=== PATIENT | female | born 1990 | race African-American/Black ===

== ENCOUNTER 2017-05-29 19:01 | Emergency (ER) | payer MEDICAID ==
[~2017-05-29] VITALS: Ht 162.6 cm; Wt 113.6 kg
[~2017-05-29 19:01] MED LIST: DOXY100T PO
[2017-05-29 19:02] VITALS: BP 182/91; PULSE 125; RESP 16; TEMP 100.9; O2SAT 96
--- NOTE | 2017-05-29 19:40 | PD ---
HPI Chief Complaint: Cold / Flu Symptoms Time Seen by Provider: 19:25 Travel History International Travel<30 days: No Contact w/Intl Traveler<30days: No Traveled to known affect area: No History of Present Illness HPI Patient is 25-year-old female presents to emergency room with complaints of not feeling well for the past week. Patient reports that for the past week, she has had a productive cough with thick white mucous. Reports that she has been having myalgia's as well as sore throat. Reports that she has been having subjective fevers and chills. Reports that her children were sick with similar symptoms prior to onset of her symptoms. Denies chest pain/sob. Patient is a smoker. No recent travels/trips. PFSH Past Medical History Diminished Hearing: No Immunizations Current: Yes Tetanus Vaccination: Unknown ?: Not LMP: 05/15/2017 Menopausal: No : 3 Para: 3 Tubal Ligation: Yes Past Surgical History Section: Yes Gynecologic Surgery: Yes Social History Alcohol Use: No Tobacco Use: Yes (rare) Substance Use: No Allergies-Medications (Allergen,Severity, Reaction): Coded Allergies: No Known Allergies (Verified Adverse Reaction, Unknown, 05/29/17) Reported Meds & Prescriptions Reported Meds & Active Scripts Active No Active Prescriptions or Reported Medications Review of Systems General / Constitutional: Positive: Fever, Chills Eyes: No: Visual changes HENT: Positive: Sore Throat, No: Headaches Cardiovascular: No: Chest Pain or Discomfort Respiratory: Positive: Cough, No: Shortness of Breath Gastrointestinal: No: Abdominal Pain Genitourinary: No: Dysuria Musculoskeletal: No: Pain Skin: No Rash Neurologic: No: Weakness Psychiatric: No: Depression Endocrine: No: Polydipsia Hematologic/Lymphatic: No: Easy Bruising Physical Exam Narrative GENERAL: moderate distress SKIN: Focused skin assessment warm/dry. HEAD: Atraumatic. Normocephalic. EYES: Pupils equal and round. No scleral icterus. No injection or drainage. ENT: No nasal bleeding or discharge. Mucous membranes pink and moist. NECK: Trachea midline. No JVD. CARDIOVASCULAR: Tachycardic. No murmur appreciated. RESPIRATORY: No accessory muscle use. Clear to auscultation. Breath sounds equal bilaterally. GASTROINTESTINAL: Abdomen soft, non-tender, nondistended. Hepatic and splenic margins not palpable. MUSCULOSKELETAL: No obvious deformities. No clubbing. No cyanosis. No edema. NEUROLOGICAL: Awake and alert. No obvious cranial nerve deficits. Motor grossly within normal limits. Normal speech. PSYCHIATRIC: Appropriate mood and affect; insight and judgment normal. Data Data Last Documented VS Vital Signs Date Time Temp Pulse Resp B/P (MAP) Pulse Ox O2 Delivery O2 Flow Rate FiO2 05/29/17 20:47 93 20 167/92 (117) 100 Room Air 05/29/17 19:02 100.9 Orders Orders Complete Blood Count With Diff (05/29/17 19:31) Comprehensive Metabolic Panel (05/29/17 19:31) Urinalysis - C+S If Indicated (05/29/17:31) Influenzae A/B Antigen (05/29/17 19:31) Blood Culture (05/29/17 19:31) Chest, Single Ap (05/29/17 19:31) Ecg Monitoring (05/29/17 19:31) Iv Access Insert/Monitor (05/29/17 19:31) Oximetry (05/29/17 19:31) Group A Rapid Strep Screen (05/29/17 19:31) Ed Urine Pregnancytest Poc (05/29/17 19:31) Sodium Chlor 0.9% 1000 Ml Inj (Ns 1000 M (05/29/17 19:45) Sodium Chlor 0.9% 1000 Ml Inj (Ns 1000 M (05/29/17 19:45) Ketorolac Inj (Toradol Inj) (05/29/17 19:45) Strep Culture (Group A) (05/29/17 19:55) Ceftriaxone Inj (Rocephin Inj) (05/29/17 20:45) Azithromycin Inj (Zithromax Inj) (05/29/17 20:45) Potassium Chloride (Kcl) (05/29/17 21:00) Labs Laboratory Tests Test 05/29/17 19:55 White Blood Count 9.8 TH/MM3 Red Blood Count 3.93 MIL/MM3 Hemoglobin 7.6 GM/DL Hematocrit 25.4 % Mean Corpuscular Volume 64.5 FL Mean Corpuscular Hemoglobin 19.3 PG Mean Corpuscular Hemoglobin Concent 29.9 % Red Cell Distribution Width 18.0 % Platelet Count 485 TH/MM3 Mean Platelet Volume 7.5 FL Neutrophils (%) (Auto) 81.3 % Lymphocytes (%) (Auto) 10.9 % Monocytes (%) (Auto) 7.6 % Eosinophils (%) (Auto) 0.0 % Basophils (%) (Auto) 0.2 % Neutrophils # (Auto) 8.0 TH/MM3 Lymphocytes # (Auto) 1.1 TH/MM3 Monocytes # (Auto) 0.8 TH/MM3 Eosinophils # (Auto) 0.0 TH/MM3 Basophils # (Auto) 0.0 TH/MM3 CBC Comment DIFF FINAL Differential Comment Urine Color YELLOW Urine Turbidity CLEAR Urine pH 6.0 Urine Specific Concrete 1.018 Urine Protein TRACE mg/dL Urine Glucose (UA) NEG mg/dL Urine Ketones NEG mg/dL Urine Occult Blood NEG Urine Nitrite NEG Urine Bilirubin NEG Urine Urobilinogen LESS THAN 2.0 MG/DL Urine Leukocyte Esterase NEG Urine RBC LESS THAN 1 /hpf Urine WBC 2 /hpf Urine Squamous Epithelial Cells 5 /hpf Urine Mucus FEW /lpf Microscopic Urinalysis Comment CATH-CULT NOT IND Blood Urea Nitrogen 6 MG/DL Creatinine 0.86 MG/DL Random Glucose 96 MG/DL Total Protein 8.2 GM/DL Albumin 3.8 GM/DL Calcium Level 8.1 MG/DL Alkaline Phosphatase 57 U/L Aspartate Amino Transf (AST/SGOT) 29 U/L Alanine Aminotransferase (ALT/SGPT) 17 U/L Total Bilirubin 0.3 MG/DL Sodium Level 134 MEQ/L Potassium Level 3.2 MEQ/L Chloride Level 102 MEQ/L Carbon Dioxide Level 23.2 MEQ/L Anion Gap 9 MEQ/L Estimat Glomerular Filtration Rate 97 ML/MIN MDM Medical Decision Making Medical Screen Exam Complete: Yes Emergency Medical Condition: Yes Medical Record Reviewed: Yes Interpretation(s) Vital Signs Date Time Temp Pulse Resp B/P (MAP) Pulse Ox O2 Delivery O2 Flow Rate FiO2 05/29/17 19:02 100.9 125 16 182/91 (121) 96 Room Air Differential Diagnosis Sepsis, strep pharyngitis, pneumonia, viral syndrome, electrolyte abnormality Narrative Course During the course of the patients emergency department visit, the patients history, examination, and differential diagnosis were reviewed with the patient. The patient was placed on a telemetry monitor with oximetry and frequent blood pressure monitoring. The patient had an IV access obtained and blood work sent for analysis. The patient was initially provided IVF, IV Toradol The patients laboratory studies were reviewed and remarkable for: Laboratory Tests Test 05/29/17 19:55 White Blood Count 9.8 TH/MM3 (4.0-11.0) Red Blood Count 3.93 MIL/MM3 (4.00-5.30) Hemoglobin 7.6 GM/DL (11.6-15.3) Hematocrit 25.4 % (35.0-46.0) Mean Corpuscular Volume 64.5 FL (80.0-100.0) Mean Corpuscular Hemoglobin 19.3 PG (27.0-34.0) Mean Corpuscular Hemoglobin Concent 29.9 % (32.0-36.0) Red Cell Distribution Width 18.0 % (11.6-17.2) Platelet Count 485 TH/MM3 (150-450) Mean Platelet Volume 7.5 FL (7.0-11.0) Neutrophils (%) (Auto) 81.3 % (16.0-70.0) Lymphocytes (%) (Auto) 10.9 % (9.0-44.0) Monocytes (%) (Auto) 7.6 % (0.0-8.0) Eosinophils (%) (Auto) 0.0 % (0.0-4.0) Basophils (%) (Auto) 0.2 % (0.0-2.0) Neutrophils # (Auto) 8.0 TH/MM3 (1.8-7.7) Lymphocytes # (Auto) 1.1 TH/MM3 (1.0-4.8) Monocytes # (Auto) 0.8 TH/MM3 (0-0.9) Eosinophils # (Auto) 0.0 TH/MM3 (0-0.4) Basophils # (Auto) 0.0 TH/MM3 (0-0.2) CBC Comment DIFF FINAL Differential Comment Urine Color YELLOW (YELLW/STRAW) Urine Turbidity CLEAR (CLEAR) Urine pH 6.0 (5.0-8.5) Urine Specific Concrete 1.018 (1.002-1.035) Urine Protein TRACE mg/dL (NEG-TRACE) Urine Glucose (UA) NEG mg/dL (NEG) Urine Ketones NEG mg/dL (NEG) Urine Occult Blood NEG (NEG) Urine Nitrite NEG (NEG) Urine Bilirubin NEG (NEG) Urine Urobilinogen LESS THAN 2.0 MG/DL (LESS Urine Leukocyte Esterase NEG (NEG) Urine RBC LESS THAN 1 /hpf (0-3) Urine WBC 2 /hpf (0-5) Urine Squamous Epithelial Cells 5 /hpf (0-5) Urine Mucus FEW /lpf (OCC) Microscopic Urinalysis Comment CATH-CULT NOT IND Blood Urea Nitrogen 6 MG/DL (7-18) Creatinine 0.86 MG/DL (0.50-1.00) Random Glucose 96 MG/DL (74-106) Total Protein 8.2 GM/DL (6.4-8.2) Albumin 3.8 GM/DL (3.4-5.0) Calcium Level 8.1 MG/DL (8.5-10.1) Alkaline Phosphatase 57 U/L (45-117) Aspartate Amino Transf (AST/SGOT) 29 U/L (15-37) Alanine Aminotransferase (ALT/SGPT) 17 U/L (10-53) Total Bilirubin 0.3 MG/DL (0.2-1.0) Sodium Level 134 MEQ/L (136-145) Potassium Level 3.2 MEQ/L (3.5-5.1) Chloride Level 102 MEQ/L (98-107) Carbon Dioxide Level 23.2 MEQ/L (21.0-32.0) Anion Gap 9 MEQ/L (5-15) Estimat Glomerular Filtration Rate 97 ML/MIN (>89) Radiology studies were reviewed and remarkable for Last Impressions Chest X-Ray 05/29/171930 Signed Impressions: Service Date/Time: May 19:38 - CONCLUSION: The lungs are clear. Fito Coronado MD Microbiology Date/Time Source Procedure Growth Status 05/29/17 19:55 Blood Peripheral Aerobic Blood Culture Pending Received 05/29/17 19:55 Blood Peripheral Anaerobic Blood Culture Pending Received 05/29/17 19:55 Blood Peripheral Aerobic Blood Culture Pending Received 05/29/17 19:55 Blood Peripheral Anaerobic Blood Culture Pending Received 05/29/17 19:55 Throat Group A Streptococcus Screen Pending Received 05/29/17 19:55 Nasal Aspirate Influenza Types A,B Antigen (CALLIE) - Final NEGATIVE FOR FLU A AND B ANTIGEN.... Complete 05/29/17 19:55 Throat Group A Streptococcus Screen (CALLIE) - Final Complete Patient with group A strep negative, influenza negative, blood cultures are pending. WBC 9.8, hemoglobin 7.6, hematocrit 25.4, platelets 485 Sodium 134, potassium 3.2, potassium was replenished, BUN 6, creatinine 0.86, AST 29, ALT 17 Patient is not tachycardic after IV fluids. Vital Signs Date Time Temp Pulse Resp B/P (MAP) Pulse Ox O2 Delivery O2 Flow Rate FiO2 05/29/17 20:47 93 20 167/92 (117) 100 Room Air 05/29/17 19:02 100.9 125 16 182/91 (121) 96 Room Air Patient reports that she is feeling much better. I reviewed all labs and all studies as well as all findings with patient in detail. Patient comfortable with being discharged to home. She will follow-up with all cultures from today. Signs and symptoms of when to return to the emergency room was reviewed with patient in detail. In the meantime, patient instructed to drink plenty of fluids, she will follow up with her primary care doctor and will return to emergency room as needed. Diagnosis Primary Impression: Acute bronchitis Qualified Codes: J20.9 - Acute bronchitis, unspecified Additional Impressions: Anemia Smoking addiction Patient Instructions: General Instructions Additional Instructions: Please provide patient with a copy of their lab work and studies at discharge* * Please follow up with your primary care doctor in 1-2 days Return to the ER if symptoms worsen or progress Return to the ER as needed Please take all antibiotics as prescribed Please stop smoking cigarettes Med/Other Pt SpecificInfo: Prescription(s) given Scripts Azithromycin (Azithromycin) 500 Mg Tab 500 MG PO DAILY for Infection, #7 TAB 0 Refills Prov: Brigitte Whitehead DO 05/29/17 Disposition: 01 DISCHARGE HOME Condition: Stable Brigitte Whitehead DO May 29, 2017 19:40
[2017-05-29] MEDS ORDERED: KETOROLAC TROMETHAMINE 30 MG/ML (IVP) VIAL IV PUSH ONE (19:45)
[2017-05-29] MEDS ORDERED: SODIUM CHLOR 0.9% 1000 ML INJ 1,000 ML IV ONE ×2 (19:45)
--- NOTE | 2017-05-29 19:46 | RADRPT ---
EXAM DATE/TIME: 05/29/2017 19:38 [facility] COMPARISON: No previous studies available for comparison. INDICATIONS : Cough MEDICAL HISTORY : Hypertension. SURGICAL HISTORY : None. ENCOUNTER: Initial ACUITY: 2 days PAIN SCORE: 0/10 LOCATION: Bilateral chest FINDINGS: A single view of the chest demonstrates the lungs to be symmetrically aerated without evidence of mas s, infiltrate or effusion. The heart is prominent,, upper limits normal for AP portable technique. The central bronchopulmonary markings are well delineated. Osseous structures are intact. CONCLUSION: The lungs are clear. Fito Coronado MD on May 29, 2017 at 19:43 Board Certified Radiologist. This report was verified electronically.
[2017-05-29 20:19] LABS: BILIRUBIN, URINE NEG (NEG); BLOOD, URINE NEG (NEG); GLUCOSE,URINE NEG (NEG); KETONE, URINE NEG (NEG); MUCUS URINE FEW /lpf (OCC); NITRITE,URINE NEG (NEG); SQUAMOUS EPITHELIAL CELL URINE 5 /hpf (0-5); URINE COLOR YELLOW (YELLW/STRAW); URINE LEUKOCYTE ESTERASE NEG (NEG)
[2017-05-29 20:24] LABS: BASOPHIL % 0.2 % (0.0-2.0); HEMATOCRIT 25.4 % (35.0-46.0); HEMOGLOBIN 7.6 GM/DL (11.6-15.3); LYMPH % 10.9 % (9.0-44.0); LYMPHOCYTE # 1.1 TH/MM3 (1.0-4.8); MEAN CELL VOLUME 64.5 FL (80.0-100.0); MEAN CORPUSCULAR HEMOGLOBIN 19.3 PG (27.0-34.0); MEAN PLATELET VOLUME 7.5 FL (7.0-11.0); MONO % 7.6 % (0.0-8.0); MONOCYTE # 0.8 TH/MM3 (0-0.9); NEUT % 81.3 % (16.0-70.0); PLATELET COUNT 485 TH/MM3 (150-450); RED BLOOD COUNT 3.93 MIL/MM3 (4.00-5.30); WHITE BLOOD COUNT 9.8 TH/MM3 (4.0-11.0)
[2017-05-29 20:28] LABS: MEAN CORPUSCULAR HGB CONC 29.9 % (32.0-36.0)
[2017-05-29 20:42] LABS: ALBUMIN 3.8 GM/DL (3.4-5.0); AST (GOT) 29 U/L (15-37); BICARBONATE 23.2 MEQ/L (21.0-32.0); BLOOD UREA NITROGEN 6 MG/DL (7-18); CALCIUM 8.1 MG/DL (8.5-10.1); CHLORIDE 102 MEQ/L (98-107); CREATININE 0.86 MG/DL (0.50-1.00); GLOMERULAR FILTRATION RATE 97 ML/MIN (>89); GLUCOSE,RANDOM 96 MG/DL (74-106); SODIUM (NA) 134 MEQ/L (136-145)
[2017-05-29] MEDS ORDERED: cefTRIAXone INJ 1,000 MG in SODIUM CHLORIDE 0.9% INJ 100 ML IV ONE (20:45)
[2017-05-29] MEDS ORDERED: AZITHROMYCIN INJ 500 MG in SODIUM CHLOR 0.9% 250 ML INJ 250 ML IV ONE (20:45)
[2017-05-29 20:46] LABS: ALKALINE PHOSPHATASE 57 U/L (45-117); ALT (GPT) 17 U/L (10-53); TOTAL BILIRUBIN ADULT 0.3 MG/DL (0.2-1.0); TOTAL PROTEIN 8.2 GM/DL (6.4-8.2)
[2017-05-29 20:47] VITALS: BP 167/92; PULSE 93; RESP 20; O2SAT 100
[2017-05-29] MEDS ORDERED: POTASSIUM CHLORIDE 10 MEQ CONTROLLED RELEASE TAB PO ONE (21:00)
[2017-05-29] MEDS ORDERED: AZIT500T2 PO (21:49)
[2017-05-30 01:42] VITALS: BP 173/85
== END 2017-05-30 02:42 | disposition home or self-care (01) ==
LOC: NEPD 19:01
DX: J20.9 Acute bronchitis, unspecified (principal); M79.1 Myalgia; D64.9 Anemia, unspecified; Z72.0 Tobacco use
CPT/HCPCS: 71010; 80053; 81001; 84703; 85025; 87040; 87081; 87804; 87880; 96361; 96365; 96375; 99284; J0456; J0696; J1885; J7030; J7050

== ENCOUNTER 2017-06-05 16:48 | Emergency (ER) | payer MEDICAID ==
[~2017-06-05 16:48] MED LIST changes: +AZIT500T2 PO; -DOXY100T PO
[2017-06-05 16:50] VITALS: BP 180/99; PULSE 101; RESP 18; TEMP 99.1; O2SAT 97
--- NOTE | 2017-06-05 20:09 | RADRPT ---
EXAM DATE/TIME: 06/05/2017 20:04 [facility] COMPARISON: CHEST SINGLE AP, May 29, 2017, 19:38. INDICATIONS : Cough. MEDICAL HISTORY : None. SURGICAL HISTORY : None. ENCOUNTER: Initial ACUITY: 2 days PAIN SCORE: 0/10 LOCATION: Bilateral chest FINDINGS: There is infiltrate and effusion in the left lung base. Right lung is grossly clear. Cardiac contours are stable accounting for differences in technique and projection. CONCLUSION: Left base infiltrate and effusion Chevy Schultz MD on June 05, 2017 at 20:06 Board Certified Radiologist. This report was verified electronically.
--- NOTE | 2017-06-05 20:21 | PD ---
HPI Chief Complaint: Cold / Flu Symptoms Time Seen by Provider: 18:58 Travel History International Travel<30 days: No Contact w/Intl Traveler<30days: No Traveled to known affect area: No History of Present Illness HPI 27-year-old female presents emergency department for evaluation of productive cough that started last night. Patient states she is coughing up thick white phlegm. She denies any fevers, chills, malaise. Patient has any abdominal pain , nausea, vomiting, diarrhea. Patient is half packs day smoker. Patient denies any sick contacts. Only major medical history is hypertension. Patient states she does take medication daily for that she can't remember what it is right now. She states she did not take her medication today. PFSH Past Medical History Diminished Hearing: No Hypertension: Yes Immunizations Current: Yes Influenza Vaccination: No ?: Not LMP: 06/05/17 Menopausal: No : 3 Para: 3 Tubal Ligation: Yes Past Surgical History Section: Yes Gynecologic Surgery: Yes Social History Alcohol Use: No Tobacco Use: No Substance Use: No Allergies-Medications (Allergen,Severity, Reaction): Coded Allergies: No Known Allergies (Verified Adverse Reaction, Unknown, 06/05/17) Reported Meds & Prescriptions Reported Meds & Active Scripts Active Review of Systems Except as stated in HPI: all other systems reviewed are Neg Physical Exam Narrative GENERAL: Well-nourished, well-developed 27-year-old female patient in no acute respiratory distress. Nontoxic appearing. SKIN: Focused skin assessment warm/dry. HEAD: Normocephalic. Atraumatic. EYES: No scleral icterus. No injection or drainage. NECK: Supple, trachea midline. No JVD or lymphadenopathy. CARDIOVASCULAR: Regular rate and rhythm without murmurs, gallops, or rubs. RESPIRATORY: Breath sounds course with rhonchi noted in left lower lobe. No accessory muscle use. GASTROINTESTINAL: Abdomen soft, non-tender, nondistended. MUSCULOSKELETAL: No cyanosis, or edema. BACK: Nontender without obvious deformity. No CVA tenderness. Data Data Last Documented VS Vital Signs Date Time Temp Pulse Resp B/P (MAP) Pulse Ox O2 Delivery O2 Flow Rate FiO2 06/05/17 16:50 99.1 101 18 180/99 (126) 97 Orders Orders Chest, Single Ap (06/05/17 19:36) Ceftriaxone Inj (Rocephin Inj) (06/05/17 20:30) Lidocaine 1% Inj (50 Ml) (Xylocaine 1% I (06/05/17 20:30) [facility] Medical Decision Making Medical Screen Exam Complete: Yes Emergency Medical Condition: Yes Differential Diagnosis Differential diagnoses include but not limited to URI, influenza, pneumonia, bronchitis Narrative Course Chest x-ray ordered based on lung sounds upon auscultation. Chest x-ray shows left base infiltrate and effusion. Patient given 1 g IM injection of Rocephin, prescription for 500 mg azithromycin 5 days. Patient given strict instructions to return the emergency Department with any worsening condition. Patient given instructions on smoking cessation and alternating ibuprofen and Tylenol as needed for pain or fevers, supportive care. Patient states she will return to the emergency Department with any worsening condition and take her antibiotics as prescribed. Last Impressions Chest X-Ray 06/05/171935 Signed Impressions: Service Date/Time: , June 05, 2017 20:04 - CONCLUSION: Left base infiltrate and effusion Chevy Schultz MD Diagnosis Primary Impression: Pneumonia Qualified Codes: J18.1 - Lobar pneumonia, unspecified organism Referrals: Primary Care Physician Patient Instructions: General Instructions, How to Stop Smoking (DC), Pneumonia (ED) Additional Instructions: Please return to emergency department if your symptoms return or worsen. Follow up with your primary care provider. Take medications as prescribed. Med/Other Pt SpecificInfo: Prescription(s) given Scripts Azithromycin (Azithromycin) 500 Mg Tab 500 MG PO DAILY for Infection for 5 Days, #5 TAB 0 Refills Prov: Radha Medrano Hannah BLACKWOOD 06/05/17 Disposition: DISCHARGE HOME Condition: Stable Radha Medrano Hannah BLACKWOOD Jun 05, 2017 20:21
[2017-06-05] MEDS ORDERED: AZIT500T2 PO (20:27)
[2017-06-05] MEDS ORDERED: LIDOCAINE HCL 1% 50 ML VIAL INFIL ONE (20:30)
[2017-06-05] MEDS ORDERED: LIDOCAINE HCL 1% PF 30 ML VIAL OTHER ONE (20:45)
== END 2017-06-05 21:03 | disposition home or self-care (01) ==
LOC: NEPK 16:48
DX: J18.1 Lobar pneumonia, unspecified organism (principal)
CPT/HCPCS: 71010; 96372; J0696

== ENCOUNTER 2017-06-07 21:19 | Inpatient (IN) | payer MEDICAID ==
[~2017-06-07] VITALS: Ht 165.1 cm; Wt 108.0 kg
[2017-06-07 21:21] VITALS: BP 241/109; PULSE 120; RESP 18; TEMP 98.8; O2SAT 97
[2017-06-07 21:47] VITALS: BP 176/85; PULSE 115; RESP 18
[2017-06-07] MEDS ORDERED: SODIUM CHLORIDE 0.9% FLUSH 10 ML FLUSH IVF PRN (22:15)
[2017-06-07] MEDS ORDERED: SODIUM CHLOR 0.9% 1000 ML INJ 1,000 ML IV ONE ×2 (22:15→22:30)
--- NOTE | 2017-06-07 22:29 | PD ---
HPI Chief Complaint: Injury Time Seen by Provider: 22:01 Travel History International Travel<30 days: No Contact w/Intl Traveler<30days: No Traveled to known affect area: No History of Present Illness HPI Patient is a 27-year-old female who presents to emergency room with complaints of swelling to her right lower extremity for the past 2 days. Patient denies any history of PE or DVT, denies any recent travels or trips. She reports that she currently is not taking any control pills. Patient reports that she is concerned that she may have a DVT to her right lower extremity. Patient reports that she was recently seen in the hospital and was diagnosed with pneumonia. She has been taking azithromycin since February 27, 2017 as she was treated for acute bronchitis, she then returned to the ER on June 05, 2017 and was diagnosed with LLL infiltrate with effusion. Patient reports that she has since completed her full course of antibiotics. She still has slight cough with shortness of breath on exertion. Denies any chest pain at this time. Patient reports that she is currently not on any medications at this time. PFSH Past Medical History Diminished Hearing: No Hypertension: Yes Immunizations Current: Yes Influenza Vaccination: No ?: Not LMP: 05/29/2017 Menopausal: No : 3 Para: 3 Tubal Ligation: Yes Past Surgical History Section: Yes Gynecologic Surgery: Yes Social History Alcohol Use: Yes (OCC) Tobacco Use: No Substance Use: No Allergies-Medications (Allergen,Severity, Reaction): Coded Allergies: NSAIDS (Non-Steroidal Anti-Inflamma (Unverified Adverse Reaction, Unknown , Rash, 06/07/17) Reported Meds & Prescriptions Reported Meds & Active Scripts Active No Active Prescriptions or Reported Medications Review of Systems General / Constitutional: No: Fever Eyes: No: Visual changes HENT: No: Headaches Cardiovascular: No: Chest Pain or Discomfort Respiratory: Positive: Cough, Shortness of Breath, No: Wheezing Gastrointestinal: No: Abdominal Pain Genitourinary: No: Dysuria Musculoskeletal: Positive: Edema, No: Pain Skin: No Rash Neurologic: No: Weakness Psychiatric: No: Depression Endocrine: No: Polydipsia Hematologic/Lymphatic: No: Easy Bruising Physical Exam Narrative GENERAL: moderate distress SKIN: Focused skin assessment warm/dry. HEAD: Atraumatic. Normocephalic. EYES: Pupils equal and round. No scleral icterus. No injection or drainage. ENT: No nasal bleeding or discharge. Mucous membranes pink and moist. NECK: Trachea midline. No JVD. CARDIOVASCULAR: Tachycardia No murmur appreciated. RESPIRATORY: No accessory muscle use. Clear to auscultation. Breath sounds equal bilaterally. GASTROINTESTINAL: Abdomen soft, non-tender, nondistended. Hepatic and splenic margins not palpable. MUSCULOSKELETAL: No obvious deformities. No clubbing. No cyanosis. +1 edema to right lower extremity - positive Homans sign. NEUROLOGICAL: Awake and alert. No obvious cranial nerve deficits. Motor grossly within normal limits. Normal speech. PSYCHIATRIC: Appropriate mood and affect; insight and judgment normal. Data Data Last Documented VS Vital Signs Date Time Temp Pulse Resp B/P (MAP) Pulse Ox O2 Delivery O2 Flow Rate FiO2 06/07/17 22:36 106 18 97 Nasal Cannula 2.00 06/07/17 21:21 98.8 Orders Orders Electrocardiogram (06/07/17 22:09) Complete Blood Count With Diff (06/07/17 22:09) D-Dimer (06/07/17 22:09) Prothrombin Time / Inr (Pt) (06/07/17 22:09) Act Partial Throm Time (Ptt) (06/07/17 22:09) Chest, Single Ap (06/07/17 22:09) Ecg Monitoring (06/07/17 22:09) Iv Access Insert/Monitor (06/07/17 22:09) Oximetry (06/07/17 22:09) Sodium Chloride 0.9% Flush (Ns Flush) (06/07/17 22:15) Sodium Chlor 0.9% 1000 Ml Inj (Ns 1000 M (06/07/17 22:15) Ed Urine Pregnancytest Poc (06/07/17 22:09) Lactic Acid Sepsis Protocol (06/07/17 22:09) Blood Culture (06/07/17 22:09) Us Leg Venous Doppler (06/07/17 ) Basic Metabolic Panel (Bmp) (06/07/17 22:09) Sodium Chlor 0.9% 1000 Ml Inj (Ns 1000 M (06/07/17 22:30) Type And Screen (06/07/17 23:15) Red Blood Cells (Rbc) (06/07/17 23:15) Blood Product Administration (06/07/17 23:15) Sodium Chlor 0.9% 250 Ml Inj (Ns 250 Ml (06/07/17 23:15) Ct Pulmonary Angiogram (06/07/17 23:24) Vitamin B12 (06/07/17 23:25) Folate, Serum (06/07/17 23:25) Rbc Folate (06/07/17 23:25) Ferritin (06/07/17 23:25) Iron/Tibc Profile (06/07/17 23:25) Retic Count (06/07/17 23:25) Heparin-D5w 25,000 U/250 Ml (Heparin-D5w (06/07/17 23:45) Cbc No Diff, Includes Plts (06/07/17 23:40) Cbc No Diff, Includes Plts (06/10/17 06:00) Act Partial Throm Time (Ptt) (06/08/17 06:40) Occult Blood (Hemoccult) Stool (06/07/17 23:40) Red Blood Cells (Rbc) (06/07/17 23:41) Admit Order (Ed Use Only) (06/07/17 23:42) Labs Laboratory Tests Test 06/07/17 22:30 White Blood Count 14.4 TH/MM3 Red Blood Count 3.26 MIL/MM3 Hemoglobin 6.1 GM/DL Hematocrit 20.6 % Mean Corpuscular Volume 63.3 FL Mean Corpuscular Hemoglobin 18.8 PG Mean Corpuscular Hemoglobin Concent 29.8 % Red Cell Distribution Width 18.8 % Platelet Count 452 TH/MM3 Mean Platelet Volume 8.1 FL Neutrophils (%) (Auto) 76.7 % Lymphocytes (%) (Auto) 12.5 % Monocytes (%) (Auto) 10.0 % Eosinophils (%) (Auto) 0.4 % Basophils (%) (Auto) 0.4 % Neutrophils # (Auto) 11.1 TH/MM3 Lymphocytes # (Auto) 1.8 TH/MM3 Monocytes # (Auto) 1.4 TH/MM3 Eosinophils # (Auto) 0.1 TH/MM3 Basophils # (Auto) 0.1 TH/MM3 CBC Comment DIFF FINAL Differential Comment Prothrombin Time 12.1 SEC Prothromb Time International Ratio 1.2 RATIO Activated Partial Thromboplast Time 28.9 SEC D-Dimer Quantitative (PE/DVT) 7.01 MG/L FEU Blood Urea Nitrogen 8 MG/DL Creatinine 0.65 MG/DL Random Glucose 110 MG/DL Calcium Level 8.5 MG/DL Sodium Level 140 MEQ/L Potassium Level 3.4 MEQ/L Chloride Level 104 MEQ/L Carbon Dioxide Level 27.3 MEQ/L Anion Gap 9 MEQ/L Estimat Glomerular Filtration Rate 134 ML/MIN Lactic Acid Level 1.0 mmol/L MDM Medical Decision Making Medical Screen Exam Complete: Yes Emergency Medical Condition: Yes Medical Record Reviewed: Yes Interpretation(s) EKG at 2228: Sinus tach at 104bpm, qt/qtc: 386/446, nonspecific t wave changes Vital Signs Date Time Temp Pulse Resp B/P (MAP) Pulse Ox O2 Delivery O2 Flow Rate FiO2 06/07/17 21:47 115 18 176/85 (115) Room Air 06/07/17 21:21 98.8 120 18 241/109 (153) 97 Room Air Differential Diagnosis Sepsis, pneumonia, DVT, PE, electrolyte abnormality Narrative Course Patient is a 27-year-old female who presents to emergency room with complaints of right lower extremity swelling and pain for the past 2 days. Patient was recently treated with 2 courses of azithromycin starting on April 29, 2017 for treatment of acute bronchitis as well as pneumonia. She reports that she is still coughing - cough has improved. Reports pains to her RLE and is concerned for DVT. During the course of the patients emergency department visit, the patients history, examination, and differential diagnosis were reviewed with the patient. The patient was placed on a tree trimmer helper with oximetry and frequent blood pressure monitoring. The patient had an IV access obtained and blood work sent for analysis. Sepsis workup initiated as patient is tachycardic with recent treatment with azithromycin for pneumonia. The patient was initially provided IVF. The patients laboratory studies were reviewed and remarkable for CBC & BMP Diagram 06/07/17 22:30 Calcium Level 8.5 Lactic acid 1.0. Radiology studies were reviewed and remarkable for : Last Impressions Chest X-Ray 06/07/179 Signed Impressions: Service Date/Time: Wednesday, June 07, 2017 22:20 - CONCLUSION: No change in slight cardiomegaly. Red Dowling MD Lower Extremity Ultrasound 06/07/17 0000 Signed Impressions: Service Date/Time: Wednesday, June 07, 2017 22:41 - CONCLUSION: Positive study for right lower extremity DVT involving the posterior tibial vein. Chevy Brower MD Patient's hemoglobin is 6.1, patient reports that she just completed her menstrual cycle and did have heavy bleeding for the past week. Plan to type and cross patient and administer one unit of blood. Prior to patient's blood transfusion, anemia labs were ordered including vitamin B12, folate, ferritin, TIBC iron and retic count Patient is tachycardic, she is hypoxic with a pulse ox of 88-92% on room air. PE study ordered. Patient's Doppler ultrasound of lower extremity was positive for DVT to the right posterior tibial vein. Plan to start heparin drip without bolus at this time as patient is anemic most likely from heavy menstrual bleeding. Patient denies blood from rectum or denies dark stools. Case reviewed with Dr. Zavala who accepts pt to service Critical Care Narrative Aggregate critical care time was 30 minutes. Time to perform other separately billable procedures was not included in the critical care time. My time did not include minutes spent treating any other patients simultaneously or on activities that did not directly contribute to the patient's treatment. The services I provided to this patient were to treat and/or prevent clinically significant deterioration that could result in: , decompensation, deterioration I provided critical care services requiring my management, as noted below: Chart data review, documentation time, medication orders and management, vital sign assessments/reviewing monitor data, ordering and reviewing lab tests, ordering and interpreting/reviewing x-rays and diagnostic studies, care of the patient and discussion of the patient with the admitting physicians. Sepsis Criteria SIRS Criteria (2 or more): Heart rate over 90, WBC > 63065, < 4000 or > 10% bands Criteria Outcome: Meets SIRS criteria Diagnosis Primary Impression: Anemia Qualified Codes: D64.9 - Anemia, unspecified Additional Impression: DVT (deep venous thrombosis) Qualified Codes: I82.401 - Acute embolism and thrombosis of unspecified deep veins of right lower extremity Admitting Information Admitting Physician Requests: Admit Scripts No Active Prescriptions or Reported Brigitte Patterson DO Jun 07, 2017 22:29
--- NOTE | 2017-06-07 22:31 | RADRPT ---
EXAM DATE/TIME: 06/07/2017 22:20 [facility] COMPARISON: CHEST SINGLE AP, June 05, 2017, 20:04. INDICATIONS : Short of breath. MEDICAL HISTORY : Hypertension. SURGICAL HISTORY : None. ENCOUNTER: Sequela ACUITY: 3 days PAIN SCORE: 0/10 LOCATION: Bilateral chest FINDINGS: The lungs are clear without infiltrate, nodule, or mass. There is no appreciable pleural effusion fo r technique. Slight cardiomegaly has not changed. CONCLUSION: No change in slight cardiomegaly. Red Dowling MD on June 07, 2017 at 22:28 Board Certified Radiologist. This report was verified electronically.
[2017-06-07 22:36] VITALS: PULSE 106; RESP 18; O2SAT 97
[2017-06-07 23:04] LABS: AUTOMATED NEUTROPHIL # 11.1 TH/MM3 (1.8-7.7); BASOPHIL # 0.1 TH/MM3 (0-0.2); BASOPHIL % 0.4 % (0.0-2.0); EOSINOPHIL # 0.1 TH/MM3 (0-0.4); EOSINOPHIL % 0.4 % (0.0-4.0); LYMPH % 12.5 % (9.0-44.0); LYMPHOCYTE # 1.8 TH/MM3 (1.0-4.8); MEAN CELL VOLUME 63.3 FL (80.0-100.0); MEAN CORPUSCULAR HEMOGLOBIN 18.8 PG (27.0-34.0); MEAN PLATELET VOLUME 8.1 FL (7.0-11.0); MONOCYTE # 1.4 TH/MM3 (0-0.9); NEUT % 76.7 % (16.0-70.0); PLATELET COUNT 452 TH/MM3 (150-450); RED BLOOD COUNT 3.26 MIL/MM3 (4.00-5.30); RED CELL DISTRIBUTION WIDTH 18.8 % (11.6-17.2); WHITE BLOOD COUNT 14.4 TH/MM3 (4.0-11.0)
--- NOTE | 2017-06-07 23:04 | RADRPT ---
EXAM DATE/TIME: 06/07/2017 22:41 [facility] COMPARISON: No previous studies available for comparison. INDICATIONS : Right leg pain/swelling. MEDICAL HISTORY : Hypertension. SURGICAL HISTORY : Tubal ligation. section. ENCOUNTER: Initial ACUITY: 4 - 6 days PAIN SCORE: 4/10 LOCATION: Right leg. TECHNIQUE: Venous ultrasound of the leg was performed from the inguinal ligament to the proximal calf. Real-bhakti e, color Doppler and spectral tracing, compression and augmentation techniques were used. FINDINGS: There is thrombus below the knee involving the right posterior tibial vein. Other venous tributaries of the right lower extremity are patent. CONCLUSION: Positive study for right lower extremity DVT involving the posterior tibial vein. Chevy Brower MD on June 07, 2017 at 23:02 Board Certified Radiologist. This report was verified electronically.
[2017-06-07 23:07] LABS: MEAN CORPUSCULAR HGB CONC 29.8 % (32.0-36.0)
[2017-06-07 23:09] LABS: HEMATOCRIT 20.6 % (35.0-46.0); HEMOGLOBIN 6.1 GM/DL (11.6-15.3)
[2017-06-07] MEDS ORDERED: SODIUM CHLOR 0.9% 250 ML INJ 250 ML IV ONE (23:15)
[2017-06-07 23:19] LABS: BICARBONATE 27.3 MEQ/L (21.0-32.0); CALCIUM 8.5 MG/DL (8.5-10.1); CREATININE 0.65 MG/DL (0.50-1.00)
[2017-06-07 23:30] LABS: INTERNATIONAL NORMALIZED RATIO 1.2 RATIO; PROTHROMBIN TIME - PATIENT 12.1 SEC (9.8-11.6)
[2017-06-07 23:33] LABS: D-DIMER 7.01 MG/L FEU (0.00-0.50)
[2017-06-07] MEDS ORDERED: ACETAMINOPHEN 325 MG TAB PO PRN (23:45)
[2017-06-07] MEDS ORDERED: MAGNESIUM HYDROXIDE SUSP 30 ML CUP PO PRN (23:45)
[2017-06-07] MEDS ORDERED: LACTULOSE SYRUP 20 GM/30 ML CUP PO PRN (23:45)
[2017-06-07] MEDS ORDERED: SENNOSIDES 8.6 MG TAB PO PRN (23:45)
[2017-06-07] MEDS ORDERED: ONDANSETRON HCL 4 MG/2 ML VIAL IVP PRN (23:45)
[2017-06-07] MEDS ORDERED: RESP: ALBUTEROL 2.5 MG/IPRATROPIUM 0.5 MG NEB (PRN) NEB (23:45)
[2017-06-07] MEDS ORDERED: MORPHINE SULFATE 2 MG/ML INJ IV PUSH PRN (23:45)
[2017-06-07] MEDS ORDERED: SODIUM CHLORIDE 0.9% FLUSH 10 ML FLUSH IV FLUSH PRN (23:45)
[2017-06-07] MEDS ORDERED: BISACODYL 10 MG SUPP RECTAL PRN (23:45)
--- NOTE | 2017-06-07 23:45 | HHI.HP ---
[facility] Adama Hall DO Admission Diagnosis DVT, Symptomatic anemia Diagnoses: (1) DVT (deep venous thrombosis) Diagnosis: Principal (2) PE (pulmonary thromboembolism) Diagnosis: Principal (3) HTN (hypertension) Diagnosis: Principal (4) Anemia Diagnosis: Principal (5) Tobacco abuse Diagnosis: Principal Travel History International Travel<30 Days: No Contact w/Intl Traveler <30 Da: No Traveled to Known Affected Are: No History of Present Illness This is a 27-year-old female w/ a PMH of HTN and Non-Compliance who presented to the ER with complaints of right leg pain and swelling starting this morning. States she thought she may have hit her leg on something at the house, but is unsure. No discrete trauma. Reports worsening swelling and pain throughout the day. Pain is constant, sharp, 8/10. Non-radiating. Worse w/ movement/ palpation. Also reports ongoing SOB. Previously seen in ER on 05/29/17 for c/ o cough/SOB, diagnosed w/ Bronchitis and d/c'd w/ Zithro 500mg PO. Returned to ER on 06/05/17 w/ ongoing complaints, reports compliance w/ antibiotics, d/c'd w / 2nd course of Zithro 500mg PO x5 days. Reports persistent cough w/ white/ yellow colored sputum and SOB, worse w/ exertion. Admits to Tobacco Abuse, however hasn't smoked in the past 2wks due to symptoms. On arrival, BP 241/109 , HR 120, O2 sat 97% on RA, Temp 99.1. O2 sat 88% with ambulation while in ER. WBC 14.4. Hemoglobin 6.1, repeat 5.8. Chemistry essentially unremarkable. INR 1.2. D-dimer elevated at 7. RLE Doppler positive for DVT. CXR w/ cardiomegaly. CTA Pulm w/ widespread small bilateral pulmonary emboli, left greater than right pulmonary consolidations. pRBC transfusion pending, started on Heparin gtt. Pt and Sister report no family h/o DVT/PE. Pt not on control-off "for years". No recent surgery, injury, immobility. Review of Systems Except as stated in HPI: all other systems reviewed are Neg ROS: 14 point review of systems otherwise negative. Past Family Social History Past Medical History PMH: HTN and Non-Compliance Past Surgical History PAST SURGICAL HISTORY: Allergies: Coded Allergies: NSAIDS (Non-Steroidal Anti-Inflamma (Unverified Adverse Reaction, Unknown , Rash, 06/07/17) Family History PAST FAMILY HISTORY: Reviewed. No h/o DM or CAD Social History PAST SOCIAL HISTORY: Occasional alcohol. Positive for tobacco abuse. Negative for drugs. Physical Exam Vital Signs Vital Signs Date Time Temp Pulse Resp B/P (MAP) Pulse Ox O2 Delivery O2 Flow Rate FiO2 06/07/17 22:36 106 18 97 Nasal Cannula 2.00 06/07/17 21:47 115 18 176/85 (115) Room Air 06/07/17 21:21 98.8 120 18 241/109 (153) 97 Room Air Physical Exam PE: GENERAL: Young black female in no acute distress. Sister at bedside. HEENT: PERRLA, EOMI. No scleral icterus or conjunctival pallor. No lid lag or facial droop. CARDIOVASCULAR: Regular rate and rhythm. No obvious murmurs to auscultation. No chest tenderness to palpation. RESPIRATORY: No obvious rhonchi or wheezing. Clear to auscultation. Breath sounds equal bilaterally. GASTROINTESTINAL: Abdomen soft, non-tender, nondistended. BS normal. MUSCULOSKELETAL: LLE without clubbing, cyanosis, or edema. No obvious deformities. RLE w/ +1 edema, tenderness to palpation. NEUROLOGICAL: Awake, alert and oriented x4. No focal neurologic deficits. Moving both upper and lower extremities spontaneously. Laboratory Laboratory Tests Test 06/07/17 22:30 White Blood Count 14.4 Red Blood Count 3.26 Hemoglobin 6.1 Hematocrit 20.6 Mean Corpuscular Volume 63.3 Mean Corpuscular Hemoglobin 18.8 Mean Corpuscular Hemoglobin Concent 29.8 Red Cell Distribution Width 18.8 Platelet Count 452 Mean Platelet Volume 8.1 Neutrophils (%) (Auto) 76.7 Lymphocytes (%) (Auto) 12.5 Monocytes (%) (Auto) 10.0 Eosinophils (%) (Auto) 0.4 Basophils (%) (Auto) 0.4 Neutrophils # (Auto) 11.1 Lymphocytes # (Auto) 1.8 Monocytes # (Auto) 1.4 Eosinophils # (Auto) 0.1 Basophils # (Auto) 0.1 CBC Comment DIFF FINAL Differential Comment Prothrombin Time 12.1 Prothromb Time International Ratio 1.2 Activated Partial Thromboplast Time 28.9 D-Dimer Quantitative (PE/DVT) 7.01 Blood Urea Nitrogen 8 Creatinine 0.65 Random Glucose 110 Calcium Level 8.5 Sodium Level 140 Potassium Level 3.4 Chloride Level 104 Carbon Dioxide Level 27.3 Anion Gap 9 Estimat Glomerular Filtration Rate 134 Lactic Acid Level 1.0 Date/Time Source Procedure Growth Status 06/07/17 22:30 Blood Peripheral Aerobic Blood Culture Pending Received 06/07/17 22:30 Blood Peripheral Anaerobic Blood Culture Pending Received Result Diagram: 06/07/17222906/07/172229 Capchristen VTE Risk Assessment Capchristen VTE Risk Assessment: Mod/High Risk (score >= 2) Caprini Risk Assessment Model Point Value = 1 Point Value = 2 Point Value = 3 Point Value = 5 Age 41-60 Minor surgery BMI > 25 kg/m2 Swollen legs Varicose veins or History of unexplained or recurrent spontaneous Oral contraceptives or hormone replacement Sepsis (< 1 month) Serious lung disease, including pneumonia (< 1 month) Abnormal pulmonary function Acute myocardial infarction Congestive heart failure (< 1 month) History of inflammatory bowel disease Medical patient at bed rest Age 61-74 Arthroscopic surgery Major open surgery (> 45 min) Laparoscopic surgery (> 45 min) Malignancy Confined to bed (> 72 hours) Immobilizing plaster cast Central venous access Age >= 75 History of VTE Family history of VTE Factor V Leiden Prothrombin [id number] Lupus anticoagulant Anticardiolipin antibodies Elevated serum homocysteine Heparin-induced thrombocytopenia Other congenital or acquired thrombophilia Stroke (< 1 month) Elective arthroplasty Hip, pelvis, or leg fracture Acute spinal cord injury (< 1 month) Prophylaxis Regimen Total Risk Factor Score Risk Level Prophylaxis Regimen 0-1 Low Early ambulation 2 Moderate Order ONE of the following: *Sequential Compression Device (SCD) *Heparin 5000 units SQ BID 3-4 Higher Order ONE of the following medications: *Heparin 5000 units SQ TID *Enoxaparin/Lovenox 40 mg SQ daily (WT < 150 kg, CrCl > 30 mL/min) *Enoxaparin/Lovenox 30 mg SQ daily (WT < 150 kg, CrCl > 10-29 mL/min) *Enoxaparin/Lovenox 30 mg SQ BID (WT < 150 kg, CrCl > 30 mL/min) AND/OR *Sequential Compression Device (SCD) 5 or more Highest Order ONE of the following medications: *Heparin 5000 units SQ TID (Preferred with Epidurals) *Enoxaparin/Lovenox 40 mg SQ daily (WT < 150 kg, CrCl > 30 mL/min) *Enoxaparin/Lovenox 30 mg SQ daily (WT < 150 kg, CrCl > 10-29 mL/min) *Enoxaparin/Lovenox 30 mg SQ BID (WT < 150 kg, CrCl > 30 mL/min) AND *Sequential Compression Device (SCD) Assessment and Plan Problem List: (1) DVT (deep venous thrombosis) ICD Code: I82.409 - Acute embolism and thrombosis of unspecified deep veins of unspecified lower extremity Status: Acute (2) PE (pulmonary thromboembolism) ICD Code: I26.99 - Other pulmonary embolism without acute cor pulmonale (3) HTN (hypertension) ICD Code: I10 - Essential (primary) hypertension (4) Anemia ICD Code: D64.9 - Anemia, unspecified Status: Acute (5) Tobacco abuse ICD Code: Z72.0 - Tobacco use Assessment and Plan A/P: 1. DVT: acute onset of RLE pain/swelling, no trauma/injury. Doppler RLE + DVT. No previous h/o DVT, no recent travel/injury/surgery/immobility, no family h/o DVT. Analgesics/antiemetics as needed. 2. PE: CTA Pulm w/ widespread small bilateral PE, images reviewed by me, unclear etiology, no risk factors as above. Started on Heparin gtt, caution w/ anemia, however will proceed w/ anticoagulation as pt hemodynamically stable and high risk of further PE. Consult Hematology for recommendations regarding anticoagulation in light of profound anemia requiring transfusion. Check trop and Check Echo to eval for cardiac strain. DuoNeb/Symbicort prn for bronchospasm from widespread PE. 3. Anemia: Likely Iron Deficiency Anemia, reports chronic, heavy menstrual bleeding. Previous h/o Iron infusions in the past, however pt non-compliant w/ follow-up. Hgb 6.1, repeat confirmed at 5.8. Check Ferritin/Iron/TIBC. Transfuse 2u pRBC, repeat Hgb. Consult Hematology as above for further eval of anemia. 4. PNA: w/ failed outpatient therapy. S/p Zithro 500mg po x2 courses of treatment, CTA Pulm w/ left greater than right consolidation, images reviewed by me. Start Rocephin/Zithro IV, DuoNeb prn. 5. HTN: Uncontrolled secondary to non-compliance. BP 241/109, HR 120 on arrival, currently 179/90, HR 107. Start Nifedipine. Hold B-casie in light of widespread PE and SOB. 6. Tobacco Abuse: Heparin gtt for acute DVT/PE 7. Social work for d/c planning as needed. 8. Previous records, imaging, labs extensively reviewed by me, case discussed at length w/ ER physician, PRECISE WINDER, pt and sister. Physician Certification 2 Midnight Certification Type: Admission for Inpatient Services Order for Inpatient Services The services are ordered in accordance with Medicare regulations or non- Medicare payer requirements, as applicable. In the case of services not specified as inpatient-only, they are appropriately provided as inpatient services in accordance with the 2-midnight benchmark. Estimated LOS (days): 2 days is the estimated time the patient will need to remain in the hospital, assuming treatment plan goals are met and no additional complications. Post-Hospital Plan: Not yet determined Problem Qualifiers (1) DVT (deep venous thrombosis): Qualified Codes: I82.401 - Acute embolism and thrombosis of unspecified deep veins of right lower extremity (2) Anemia: Qualified Codes: D64.9 - Anemia, unspecified Lucita Zavala MD Jun 07, 2017 23:45
[2017-06-07 23:57] LABS: RETIC # 104.7 MIL/L (20.0-150.0); RETIC % 3.2 % (0.4-3.0)
[2017-06-07] MEDS ORDERED: IOHEXOL 350 MG/ML 10 ML VIAL (for RAD DIAG) IVCONTRAST ONE (23:58)
[2017-06-08] VITALS (21 sets, daily range): BP systolic 149–189; BP diastolic 79–105; PULSE 69–114; RESP 18–21; TEMP 98.2–99.5; O2SAT 87–100
--- NOTE | 2017-06-08 00:26 | RADRPT ---
EXAM DATE/TIME: 06/08/2017 00:04 [facility] COMPARISON: No previous studies available for comparison. INDICATIONS : Swollen right leg. Elevated D-Dimer. IV CONTRAST: 80 cc Omnipaque 350 (iohexol) IV RADIATION DOSE: 23.47 CTDIvol (mGy) MEDICAL HISTORY : Hypertension. SURGICAL HISTORY : Tubal ligation. ENCOUNTER: Initial ACUITY: 1 day PAIN SCALE: 0/10 LOCATION: chest TECHNIQUE: Volumetric scanning of the chest was performed using a pulmonary embolism protocol MIP images were re constructed. Using automated exposure control and adjustment of the mA and/or kV according to patien t size, radiation dose was kept as low as reasonably achievable to obtain optimal diagnostic quality images. DICOM format image data is available electronically for review and comparison. Follow-up recommendations for detected pulmonary nodules are based at a minimum on nodule size and pa tient risk factors according to Fleischner Society Guidelines. FINDINGS: Scattered segmental emboli involve all lobes of both lungs. No large/central pulmonary embolus. Heart size normal. No evidence of right ventricular strain. There is pulmonary consolidation of both lung bases, left worse than right. This is most likely infec tious or inflammatory but conceivably some of the areas may represent pulmonary infarcts. No pleu ral effusion or pneumothorax. There are scattered mediastinal lymph nodes including a subcarinal lymph node measuring up to 23 mm i n greatest short axis dimension. CONCLUSION: 1. Widespread small bilateral pulmonary emboli. 2. Left greater than right pulmonary consolidation. Please see above. 3. Nonspecific mediastinal lymphadenopathy, mostly subcarinal. Chevy Brower MD on June 08, 2017 at 0:18 Board Certified Radiologist. This report was verified electronically.
[2017-06-08 00:33] LABS: MEAN CELL VOLUME 63.5 FL (80.0-100.0); MEAN PLATELET VOLUME 8.2 FL (7.0-11.0); PLATELET COUNT 412 TH/MM3 (150-450); RED BLOOD COUNT 3.08 MIL/MM3 (4.00-5.30); RED CELL DISTRIBUTION WIDTH 18.9 % (11.6-17.2)
[2017-06-08 00:38] LABS: MEAN CORPUSCULAR HGB CONC 29.8 % (32.0-36.0)
[2017-06-08 00:52] LABS: HEMATOCRIT 19.5 % (35.0-46.0); HEMOGLOBIN 5.8 GM/DL (11.6-15.3)
[2017-06-08] MEDS: cefTRIAXone INJ 1,000 MG in SODIUM CHLORIDE 0.9% INJ 100 ML IV SCH (01:18)
[2017-06-08] MEDS: AZITHROMYCIN INJ 500 MG in SODIUM CHLOR 0.9% 250 ML INJ 250 ML IV SCH (01:22)
[2017-06-08] MEDS ORDERED: NIFEdipine 30 MG SUSTAINED RELEASE TAB PO ONE (02:00)
[2017-06-08] MEDS: HEPARIN-D5W 25,000 U/250 ML 250 ML IV PRN (03:02)
[2017-06-08] MEDS: ACETAMINOPHEN/HYDROcodone 325 MG/5 MG TAB PO PRN ×3 (05:16→21:26)
[2017-06-08] MEDS: SODIUM CHLORIDE 0.9% FLUSH 10 ML FLUSH IV FLUSH SCH ×2 (09:00→21:26)
[2017-06-08] MEDS: NIFEdipine 30 MG SUSTAINED RELEASE TAB PO SCH (09:10)
[2017-06-08] MEDS: DOCUSATE SODIUM 50 MG/SENNA 8.6 MG TAB PO SCH ×2 (09:10→21:25)
[2017-06-08] MEDS ORDERED: cloNIDine HCL 0.1 MG TAB PO PRN (13:15)
--- NOTE | 2017-06-08 13:20 | EKG ---
Date Performed: 06/07/2017 Time Performed: 22:28:23 PTAGE: 27 years EKG: SINUS TACHYCARDIA NONSPECIFIC T-WAVE ABNORMALITY ABNORMAL RHYTHM ECG NO PREVIOUS TRACING DOCTOR: Domo Olivo Interpretating Date/Time 06/08/2017 13:18:06
--- NOTE | 2017-06-08 14:44 | MB ---
cc: BASIL LARSON MD DATE OF CONSULTATION: 06/08/2017. HISTORY OF PRESENT ILLNESS: Ms. Alcantar is a 27-year-old lady with a history of hypertension and noncompliance who was admitted to the hospital on June 07, 2017 after she presented to the emergency room with right-sided leg pain of one days duration. She also reports that she had been having shortness of breath for approximately three days leading up to her presentation. She has three children, and all three of them are ill with a bronchitis which she had caught. She has had multiple emergency room visits for bronchitis and she had been on antibiotic therapy. She was discharged recently. She had been on two courses of azithromycin. IMAGING STUDIES: Imaging studies include an ultrasound of the lower extremities, which showed a thrombus below the knee involving the right posterior tibial vein. CTA showed widespread small bilateral pulmonary emboli and pulmonary consolidation of both lung bases, left worse than right. The radiologist notes that this is most likely infectious or inflammatory but conceivably some of the areas may represent pulmonary infarcts. No pleural effusion or pneumothorax. Also noted are scattered mediastinal lymph nodes including a subcarinal lymph node measuring up to 2.3 mm. Blood cultures from the with no growth in one day. Laboratory studies show a hemoglobin of 5.8 and MCV of 63.5. White blood cell count 14.0, platelet count of 412,000. Chemistry studies with a creatinine of 0.65. Liver function tests with a total bilirubin of 0.3, AST 29, ALT 17, alkaline phosphatase of 57. Liver function tests are from the . Renal function is within normal limits at 0.65. REVIEW OF SYSTEMS: GENERAL: Fatigue and weakness. RESPIRATORY: Productive cough, shortness of breath. MUSCULOSKELETAL: Pain in right lower extremity. PAST SURGICAL HISTORY: section. PAST MEDICAL HISTORY: Hypertension. ALLERGIES: NSAIDS. FAMILY HISTORY: maternal grandmother with a history of blood clots SOCIAL HISTORY: Occasional alcohol. Positive for tobacco, negative for drugs. She does not work at this time, She takes care of her children. She denies any illegal drug use. PHYSICAL EXAMINATION: VITAL SIGNS: Temperature 99.1 pulse is 69, respiratory rate 28, blood pressure 158/79, pulse ox is 98 on 2 liters of oxygen via nasal cannula. GENERAL: Overweight lady in no distress, resting comfortably in bed. ENT: Nasal cannula in place OP clear. NECK: Neck is supple with no palpable lymphadenopathy. CARDIOVASCULAR: Regular rate and rhythm with no murmurs. RESPIRATORY: Clear to auscultation bilaterally. ABDOMEN: The abdomen is soft, nontender and nondistended. Bowel sounds present. EXTREMITIES: Swelling, erythema and tenderness of the right lower extremity. NEUROLOGIC: Grossly nonfocal. MUSCULOSKELETAL: Full range of motion. PSYCHIATRIC: appropriate mood and affect. ASSESSMENT AND PLAN: 1. Anemia. We will check iron profile, ferritin, vitamin B12 and folate. Will add these labs onto a CBC that was taken prior to blood transfusion. She denies blood in stool or blood in urine, but she does report heavy menstrual blood loss. Will consult gynecology team for recommendations on control of this as she will be discharged with a blood thinner and this will be worsened and exacerbated by the blood thinner. Will check stool for occult blood. 2. Venous thromboembolism with widespread PE and right lower extremity DVT: The patient reports that she leads a sedentary lifestyle and this has been worsened recently as she has been sick and been in and out of the emergency room. Denies any family history of blood clot or any personal history of blood clot. Denies any family history of miscarriage. This is likely provoked. She will need at minimum three months of anticoagulation. At that time, she will need to follow in clinic and discuss continuing anticoagulation versus cessation of anticoagulation. Will consider hypercoagulable workup in the outpatient setting. 2. Heavy menstrual blood loss. Will consult gynecology for further evaluation. MD ANI Kidd/ANGELIQUE /1:41 PM /2:17 PM
[2017-06-08] MEDS ORDERED: FUROSEMIDE 40 MG/4 ML VIAL IV PUSH ONE (14:45)
--- NOTE | 2017-06-08 14:52 | HHI.PR ---
Subjective Remarks Patient c/o pain in right calf as well as some chest pain. Denies fevers or chills. As per RN o2 sats dropping in the thigh 80's. Patient is afebrile and tachycardic Getting blood transfusions On IV heparin drip Objective Vitals Vital Signs Date Time Temp Pulse Resp B/P (MAP) Pulse Ox O2 Delivery O2 Flow Rate FiO2 06/08/17 14:01 99.4 107 20 149/90 (109) 92 06/08/17 13:55 99.4 114 20 164/86 (112) 87 06/08/17 13:50 Nasal Cannula 2.00 06/08/17 13:30 99.0 105 20 166/94 90 06/08/17 12:01 99.1 69 20 158/79 (105) 98 06/08/17 10:05 98.6 105 20 179/82 90 06/08/17 09:47 98.6 106 20 177/80 90 06/08/17 09:23 98.2 106 20 160/93 92 06/08/17 09:00 Nasal Cannula 2.00 06/08/17 08:01 98.3 91 21 189/105 (133) 93 06/08/17 08:00 88 06/08/17 07:50 Nasal Cannula 2.00 06/08/17 05:37 98.7 96 18 187/94 95 06/08/17 05:22 98.7 103 18 185/101 100 06/08/17 04:00 99.2 102 18 187/94 (125) 99 06/08/17 04:00 101 06/08/17 02:25 98.9 106 18 182/95 98 06/08/17 02:06 105 06/08/17 01:13 06/08/17 01:10 98.3 111 19 178/92 (120) 97 06/08/17 00:51 98 Nasal Cannula 2.00 06/08/17 00:31 107 20 179/90 (119) 98 Nasal Cannula 2.00 06/07/17 22:36 106 18 97 Nasal Cannula 2.00 06/07/17 21:47 115 18 176/85 (115) Room Air 06/07/17 21:21 98.8 120 18 241/109 (153) 97 Room Air I/O 12/30/17 1206/07/17 06/08/17 06/08/17 06/08/17 07:00 15:00 23:00 07:00 15:00 23:00 Intake Total 2009 ml 825 ml Balance 2010 ml 825 ml Intake Oral 240 ml IV Total 1350 ml Packed Cells 400 ml 800 ml Blood Product IV Normal Saline Flush 20 ml 25 ml # Voids 1 # Bowel Movements 0 Result Diagram: 06/07/17 2359 06/07/[address] Angiography 06/07/174 Signed Impressions: Service Date/Time: Thursday, June 08, 2017 00:04 - CONCLUSION: 1. Widespread small bilateral pulmonary emboli. 2. Left greater than right pulmonary consolidation. Please see above. 3. Nonspecific mediastinal lymphadenopathy, mostly subcarinal. Chevy Brower MD Chest X-Ray 06/07/172208 Signed Impressions: Service Date/Time: Wednesday, June 07, 2017 22:20 - CONCLUSION: No change in slight cardiomegaly. Red Dowling MD Lower Extremity Ultrasound 06/07/17 0000 Signed Impressions: Service Date/Time: Wednesday, June 07, 2017 22:41 - CONCLUSION: Positive study for right lower extremity DVT involving the posterior tibial vein. Chevy Brower MD Objective Remarks GENERAL: Young black female in no acute distress. HEENT: PERRLA, EOMI. No scleral icterus or conjunctival pallor. No lid lag or facial droop. CARDIOVASCULAR: Regular rate and rhythm. No obvious murmurs to auscultation. No chest tenderness to palpation. RESPIRATORY: No obvious rhonchi or wheezing. Clear to auscultation. Breath sounds equal bilaterally. GASTROINTESTINAL: Abdomen soft, non-tender, nondistended. BS normal. MUSCULOSKELETAL: LLE without clubbing, cyanosis, or edema. No obvious deformities. RLE w/ +1 edema, tenderness to palpation over calf. NEUROLOGICAL: Awake, alert and oriented x4. No focal neurologic deficits. Moving both upper and lower extremities spontaneously. Medications and IVs Current Medications Medications (Trade) Dose Ordered Sig/Brent Route Start Time Stop Time Status Last Admin Sodium Chloride 250 ml @ 15 mls/hr ONCE ONCE IV 06/07/17 23:15 06/08/17 15:54 06/08/17 01:23 Heparin Sodium/ Dextrose 250 ml @ 18 mls/hr TITRATE PRN IV 06/07/17 23:45 06/08/17 03:02 (Duoneb Neb) 1 ampule Q4HR NEB PRN NEB 06/07/17 23:45 (NS Flush) 2 ml UNSCH PRN IV FLUSH 06/07/17 23:45 (NS Flush) 2 ml BID IV FLUSH 06/08/17 09:00 (Zofran Inj) 4 mg Q6H PRN IVP 06/07/17 23:45 (Tylenol) 650 mg Q6H PRN PO 06/07/17 23:45 ([place] 5-325 Mg) 1 tab Q4H PRN PO 06/07/17 23:45 06/08/17 14:00 (Morphine Inj) 2 mg Q3H PRN IV PUSH 06/07/17 23:45 (Coty-Colace) 1 tab BID PO 06/08/17 09:00 06/08/17 09:10 (Milk Of Magnesia Liq) 30 ml Q12H PRN PO 06/07/17 23:45 (Senokot) 17.2 mg Q12H PRN PO 06/07/17 23:45 (Dulcolax Supp) 10 mg DAILY PRN RECTAL 06/07/17 23:45 (Lactulose Liq) 30 ml DAILY PRN PO 06/07/17 23:45 Ceftriaxone Sodium 1000 mg/ Sodium Chloride 100 ml @ 200 mls/hr Q24H IV 06/08/17 02:00 06/08/17 01:18 Azithromycin 500 mg/Sodium Chloride 250 ml @ 250 mls/hr Q24H IV 06/08/17 01:00 06/08/17 01:22 (Procardia Xl) 30 mg DAILY PO 06/08/17 09:00 06/08/17 09:10 (Catapres) 0.1 mg Q6H PRN PO 06/08/17 13:15 (Lasix Inj) 40 mg ONCE ONCE IV PUSH 06/08/17 14:45 06/08/17 14:46 A/P Problem List: (1) DVT (deep venous thrombosis) ICD Code: I82.409 - Acute embolism and thrombosis of unspecified deep veins of unspecified lower extremity Status: Acute (2) PE (pulmonary thromboembolism) ICD Code: I26.99 - Other pulmonary embolism without acute cor pulmonale (3) HTN (hypertension) ICD Code: I10 - Essential (primary) hypertension (4) Anemia ICD Code: D64.9 - Anemia, unspecified Status: Acute (5) Tobacco abuse ICD Code: Z72.0 - Tobacco use Assessment and Plan 1. DVT: acute onset of RLE pain/swelling, no trauma/injury. Doppler RLE + DVT. No previous h/o DVT, no recent travel/injury/surgery/immobility, no family h/o DVT. Analgesics/antiemetics as needed. 06/08 hematology consulted. Appreciate recommendations. The case was discussed with Dr. Min who recommends continuation of IV heparin and possibly switching to Eliquis for outpatient therapy. 2. PE: CTA Pulm w/ widespread small bilateral PE, images reviewed by me, unclear etiology, no risk factors as above. Started on Heparin gtt, caution w/ anemia, however will proceed w/ anticoagulation as pt hemodynamically stable and high risk of further PE. Consult Hematology for recommendations regarding anticoagulation in light of profound anemia requiring transfusion. Check trop and Check Echo to eval for cardiac strain. DuoNeb/Symbicort prn for bronchospasm from widespread PE. 06/08 continue IV heparin drip as above. Continue supplemental oxygen to keep oxygen saturations more than 92%. Patient with oxygen saturation which could be secondary to fluid overload versus PE. We'll order a chest x-ray stat and give 40 mg of IV Lasix. 3. Anemia: Likely Iron Deficiency Anemia, reports chronic, heavy menstrual bleeding. Previous h/o Iron infusions in the past, however pt non-compliant w/ follow-up. Hgb 6.1, repeat confirmed at 5.8. Check Ferritin/Iron/TIBC. Transfuse 2u pRBC, repeat Hgb. Consult Hematology as above for further eval of anemia. 06/08 CEMENT KILN OPERATOR consulted. The patient is finishing the third unit of packed red blood cells. Follow-up iron studies 4. Sepsis/PNA: w/ failed outpatient therapy. S/p Zithro 500mg po x2 courses of treatment, CTA Pulm w/ left greater than right consolidation, images reviewed by me. Started Rocephin/Zithro IV, DuoNeb prn. 06/08 continue IV Rocephin and IV azithromycin. Sepsis criteria met on admission. Patient tachycardic and with leukocytosis. 5. HTN: Uncontrolled secondary to non-compliance. BP 241/109, HR 120 on arrival, currently 179/90, HR 107. Start Nifedipine. Hold B-casie in light of widespread PE and SOB. 6. SOB: Patient complains of shortness of breath and oxygen saturation dropping down to the high 80s. We'll obtain a chest x-ray and give 40 mg IV Lasix in view that the patient has gotten 2 units of packed blood cells. Continue to monitor vital signs, continue to supplement oxygen to nation to keep oxygen saturation more than 92%. 6. Tobacco Abuse: Heparin gtt for acute DVT/PE 7. Social work for d/c planning as needed. Discharge Planning Continue to monitor in the medical floor. Patient still with severe anemia, leukocytosis, hypoxemia. Problem Qualifiers (1) DVT (deep venous thrombosis): Qualified Codes: I82.401 - Acute embolism and thrombosis of unspecified deep veins of right lower extremity (2) Anemia: Qualified Codes: D64.9 - Anemia, unspecified Austin Sellers MD Jun 08, 2017 14:52
[2017-06-08 15:47] LABS: AUTOMATED NEUTROPHIL # 15.6 TH/MM3 (1.8-7.7); BASOPHIL # 0.1 TH/MM3 (0-0.2); BASOPHIL % 0.4 % (0.0-2.0); EOSINOPHIL # 0.2 TH/MM3 (0-0.4); EOSINOPHIL % 0.9 % (0.0-4.0); HEMATOCRIT 29.7 % (35.0-46.0); HEMOGLOBIN 9.4 GM/DL (11.6-15.3); LYMPHOCYTE # 2.4 TH/MM3 (1.0-4.8); MEAN CORPUSCULAR HEMOGLOBIN 22.2 PG (27.0-34.0); MEAN CORPUSCULAR HGB CONC 31.8 % (32.0-36.0); MEAN PLATELET VOLUME 8.3 FL (7.0-11.0); MONO % 7.3 % (0.0-8.0); MONOCYTE # 1.4 TH/MM3 (0-0.9); NEUT % 79.4 % (16.0-70.0); PLATELET COUNT 431 TH/MM3 (150-450); RED BLOOD COUNT 4.25 MIL/MM3 (4.00-5.30); RED CELL DISTRIBUTION WIDTH 21.2 % (11.6-17.2); WHITE BLOOD COUNT 19.6 TH/MM3 (4.0-11.0)
[2017-06-08 16:02] LABS: ALBUMIN 2.6 GM/DL (3.4-5.0); AST (GOT) 12 U/L (15-37); BICARBONATE 25.5 MEQ/L (21.0-32.0); BLOOD UREA NITROGEN 4 MG/DL (7-18); CALCIUM 8.4 MG/DL (8.5-10.1); CHLORIDE 105 MEQ/L (98-107); CREATININE 0.52 MG/DL (0.50-1.00); GLOMERULAR FILTRATION RATE 174 ML/MIN (>89); GLUCOSE,RANDOM 97 MG/DL (74-106); PHOSPHORUS 3.3 MG/DL (2.5-4.9); SODIUM (NA) 138 MEQ/L (136-145)
[2017-06-08 16:09] LABS: % SATURATION IRON PROFILE 5.8 % (20-50); IRON (FE) 16 MCG/DL (50-170); TOTAL IRON BINDING CAPACITY 274 MCG/DL (250-450)
[2017-06-08 16:27] LABS: ALKALINE PHOSPHATASE 51 U/L (45-117); ALT (GPT) 18 U/L (10-53); FERRITIN 67 NG/ML (8-252); FOLATE 12.5 NG/ML (3.1-17.5); IRON (FE) 16 MCG/DL (50-170); TOTAL BILIRUBIN ADULT 0.5 MG/DL (0.2-1.0); TOTAL IRON BINDING CAPACITY 267 MCG/DL (250-450); TOTAL PROTEIN 7.9 GM/DL (6.4-8.2); TROPONIN I LESS THAN 0.02 NG/ML (0.02-0.05)
[2017-06-08 16:34] LABS: FERRITIN 67 NG/ML (8-252); FOLATE 12.2 NG/ML (3.1-17.5)
--- NOTE | 2017-06-08 22:45 | PD.CONS ---
HPI Chief Complaint Anemia secondary to heavy periods, shortness of breath, pain with breathing Date Seen: Jun 08, 2017 Time Seen: 22:22 Travel History International Travel<30 Days: No Contact w/Intl Traveler<30Days: No Known Affected Area: No History of Present Illness HPI Patient is 27-year-old black female previous 3 with tubal ligation with last done in [facility] who presented with the pain is breathing and shortness of breath. Noted to have a DVT with multiple pulmonary emboli also her hemoglobin was 5.8 and hematocrit of 19.6 and has since been transfused with 3 units of blood. She describes heavy periods for years but has not been in the hospital transfused for that in the past. She has no discernible risk factors for thromboembolism she's been off control pills for many years Para: 3 : 3 Last Menstrual Period: Jun 08, 2017 History Obstetric History Obstetric History Previous C-sections 3 Past Surgical History Narrative Surgical C-sections Social History Alcohol Use: No Tobacco Use: No Substance Abuse: No Allergies-Medications (Allergen,Severity, Reaction): Coded Allergies: NSAIDS (Non-Steroidal Anti-Inflamma (Unverified Adverse Reaction, Unknown , Rash, 06/07/17) Home Meds Discontinued Scripts Azithromycin (Azithromycin) 500 Mg Tab, 500 MG PO DAILY for Infection for 5 Days , #5 TAB 0 Refills Prov:Radha Medrano 06/05/17 Azithromycin (Azithromycin) 500 Mg Tab, 500 MG PO DAILY for Infection, #7 TAB 0 Refills Prov:Brigitte Whitehead DO 05/29/17 Review of Systems General / Constitutional: No: Fever, Weight Gain, Chills, Other Eyes: No: Diploplia, Blurred Vision, Visual changes, Pain, Photophobia HENT: No: Headaches, Vertigo, Lightheadedness Cardiovascular: No: Irregular Rhythm, Chest Pain or Discomfort, Palpitations, Tachycardia, Syncope, Varicosities, Edema, Cyanosis Respiratory: Cough, Short of Breath, No: Other Gastrointestinal: No: Nausea, Vomiting, Diarrhea Genitourinary: No: Decreased Urinary Output, Oliguria Musculoskeletal: No: Limited ROM, Weakness, Cramping, Edema, Pain Skin: No Rash, No Itching, No Dryness, No Lumps, No Change in Pigmentation, No Change in Nails, No Alopecia, No Lesions Neurologic: No: Weakness, Dizziness, Syncope, Focal Abnormalities, Coordination Problem, Headache, Slurred Speech, Seizures Psychiatric: No: Depression, Suicidal Ideations, Homicidal Ideation Endocrine: No: Heat Intolerance, Cold Intolerance, Polydipsia, Polyuria, Other Physical Exam Vital Signs Date Time Temp Pulse Resp B/P (MAP) Pulse Ox O2 Delivery O2 Flow Rate FiO2 06/08/17 17:58 Nasal Cannula 4.00 06/08/17 16:01 98.4 101 21 169/94 (119) 93 06/08/17 16:00 98 06/08/17 15:00 Nasal Cannula 4.00 06/08/17 14:01 99.4 107 20 149/90 (109) 92 06/08/17 13:55 99.4 114 20 164/86 (112) 87 06/08/17 13:50 Nasal Cannula 2.00 06/08/17 13:30 99.0 105 20 166/94 90 06/08/17 12:01 99.1 69 20 158/79 (105) 98 06/08/17 12:00 99 06/08/17 10:05 98.6 105 20 179/82 90 06/08/17 09:47 98.6 106 20 177/80 90 06/08/17 09:23 98.2 106 20 160/93 92 06/08/17 09:11 Nasal Cannula 2.00 06/08/17 09:00 Nasal Cannula 2.00 06/08/17 08:01 98.3 91 21 189/105 (133) 93 06/08/17 08:00 88 06/08/17 07:50 Nasal Cannula 2.00 06/08/17 05:37 98.7 96 18 187/94 95 06/08/17 05:22 98.7 103 18 185/101 100 06/08/17 04:00 99.2 102 18 187/94 (125) 99 06/08/17 04:00 101 06/08/17 02:25 98.9 106 18 182/95 98 06/08/17 02:06 105 06/08/17 01:13 06/08/17 01:10 98.3 111 19 178/92 (120) 97 06/08/17 00:51 98 Nasal Cannula 2.00 06/08/17 00:31 107 20 179/90 (119) 98 Nasal Cannula 2.00 06/07/17 22:36 106 18 97 Nasal Cannula 2.00 Narrative GENERAL: Well-nourished, well-developed obese patient. SKIN: Warm and dry. HEAD: Normocephalic and atraumatic. EYES: No scleral icterus. No injection or drainage. ENT: No nasal drainage noted. Mucous membranes pink. Airway patent. NECK: Supple, trachea midline. No JVD. CARDIOVASCULAR: Regular rate and rhythm without murmurs, gallops, or rubs. RESPIRATORY: Breath sounds equal bilaterally. No accessory muscle use. BREASTS: Bilateral exam showed no masses , no retractions, no nipple discharge. ABDOMEN/ obese nontender no masses normal bowel sounds External Genitalia: intact and normal in appearance Cervix: [-Normal] Uterus anteflexed slightly enlarged no adnexal masses but patient size prevents good exam EXTREMITIES: No cyanosis or edema. BACK: Nontender without obvious deformity. No CVA tenderness. NEUROLOGICAL: Awake and alert. Motor and sensory grossly within normal limits. Five out of 5 muscle strength in all muscle groups. Normal speech. Data Data Orders Orders Type And Screen (06/07/17 23:15) Red Blood Cells (Rbc) (06/07/17 23:15) Sodium Chlor 0.9% 250 Ml Inj (Ns 250 Ml (06/07/17 23:15) Ct Pulmonary Angiogram (06/07/17 23:24) Vitamin B12 (06/07/17 23:25) Folate, Serum (06/07/17 23:25) Rbc Folate (06/07/17 23:25) Ferritin (06/07/17 23:25) Iron/Tibc Profile (06/07/17 23:25) Retic Count (06/07/17 23:25) Heparin-D5w 25,000 U/250 Ml (Heparin-D5w (06/07/17 23:45) Cbc No Diff, Includes Plts (06/07/17 23:40) Cbc No Diff, Includes Plts (06/10/17 06:00) Act Partial Throm Time (Ptt) (06/08/17 06:40) Occult Blood (Hemoccult) Stool (06/07/17 23:40) Red Blood Cells (Rbc) (06/07/17 23:41) Admit Order (Ed Use Only) (06/07/17 23:42) Albuterol-Ipratropium Neb (Duoneb Neb) (06/07/17 23:45) Consult Hematology (06/07/17 ) Admit To Inpatient (06/07/17 ) Vital Signs (Adult) Q4H (06/07/17 23:42) Activity Oob With Assistance (06/07/17 23:42) Telephone Quotation Clerk / Telemetry .CONTINUOUS (06/07/17 23:42) Intake + Output KEEGAN.QSHIFT (06/07/17 23:42) Diet Regular Basic (06/08/17 Breakfast) Sodium Chloride 0.9% Flush (Ns Flush) (06/07/17 23:45) Sodium Chloride 0.9% Flush (Ns Flush) (06/08/17 09:00) Ondansetron Inj (Zofran Inj) (06/07/17 23:45) Acetaminophen (Tylenol) (06/07/17 23:45) Acetamin-Hydrocod 325-5 Mg ([place] 5-325 (06/07/17 23:45) Morphine Inj (Morphine Inj) (06/07/17 23:45) Docusate Sodium-Senna (Coty-Colace) (06/08/17 09:00) Magnesium Hydroxide Liq (Milk Of Magnesi (06/07/17 23:45) Sennosides (Senokot) (06/07/17 23:45) Bisacodyl Supp (Dulcolax Supp) (06/07/17 23:45) Lactulose Liq (Lactulose Liq) (06/07/17 23:45) Inpatient Certification (06/07/17 ) (Hub Use Only)Inp Phy Cons/Ref (06/07/17 ) Iohexol 350 Inj (Omnipaque 350 Inj) (06/07/17 23:58) Ceftriaxone Inj (Rocephin Inj) (06/08/17 02:00) Azithromycin Inj (Zithromax Inj) (06/08/17 01:00) Blood Product Administration (06/08/17 01:24) ^ Other Nursing Orders (06/08/17 01:24) Nifedipine Sr (Procardia Xl) (06/08/17 09:00) ^ Mesh Panties (06/08/17 01:35) Pants, Air-Hao Large Bg (06/08/17 01:35) Liner, Air-Hao Pants Pk (06/08/17 01:35) Nifedipine Sr (Procardia Xl) (06/08/17 02:00) Physician Name Changes (06/08/17 ) Echo 2d Comp With Doppler (06/08/17 ) Clonidine (Catapres) (06/08/17 13:15) Complete Blood Count With Diff (06/09/17 06:00) Comprehensive Metabolic Panel (06/09/17 06:00) Consult Gynecology (06/08/17 ) Occult Blood (Hemoccult) Stool (06/08/17 13:45) Specimen To Be Collected PRN (06/08/17 13:45) Complete Blood Count With Diff (06/08/17 14:01) Comprehensive Metabolic Panel (06/08/17 14:01) Magnesium (Mg) (06/08/17 14:01) Phosphorus (Po4) (06/08/17 14:01) Act Partial Throm Time (Ptt) (06/08/17 15:00) Furosemide Inj (Lasix Inj) (06/08/17 14:45) (Hub Use Only)Inp Phy Cons/Ref (06/08/17 ) Vitamin B12 (06/08/17 14:40) Ferritin (06/08/17 14:40) Folate, Serum (06/08/17 14:40) Iron/Tibc Profile (06/08/17 14:40) Troponin I (06/08/17 14:40) Act Partial Throm Time (Ptt) (06/09/17 06:00) Us Pelvis Comp W Transvaginal (06/08/17 ) Labs Laboratory Tests Test 06/07/17 23:59 06/08/17 09:04 06/08/17 14:40 06/08/17 14:48 White Blood Count 14.0 19.6 Red Blood Count 3.08 4.25 Hemoglobin 5.8 9.4 Hematocrit 19.5 29.7 Mean Corpuscular Volume 63.5 70.0 Mean Corpuscular Hemoglobin 19.0 22.2 Mean Corpuscular Hemoglobin Concent 29.8 31.8 Red Cell Distribution Width 18.9 21.2 Platelet Count 412 431 Mean Platelet Volume 8.2 8.3 Activated Partial Thromboplast Time 54.2 46.9 Blood Urea Nitrogen 4 Creatinine 0.52 Random Glucose 97 Total Protein 7.9 Albumin 2.6 Calcium Level 8.4 Phosphorus Level 3.3 Magnesium Level 2.0 Alkaline Phosphatase 51 Aspartate Amino Transf (AST/SGOT) 12 Alanine Aminotransferase (ALT/SGPT) 18 Total Bilirubin 0.5 Sodium Level 138 Potassium Level 3.4 Chloride Level 105 Carbon Dioxide Level 25.5 Anion Gap 8 Estimat Glomerular Filtration Rate 174 Iron Level 16 Total Iron Binding Capacity 267 Percent Iron Saturation 6.0 Ferritin 67 Troponin I LESS THAN 0.02 Vitamin B12 Level 1183 Folate 12.5 Neutrophils (%) (Auto) 79.4 Lymphocytes (%) (Auto) 12.0 Monocytes (%) (Auto) 7.3 Eosinophils (%) (Auto) 0.9 Basophils (%) (Auto) 0.4 Neutrophils # (Auto) 15.6 Lymphocytes # (Auto) 2.4 Monocytes # (Auto) 1.4 Eosinophils # (Auto) 0.2 Basophils # (Auto) 0.1 CBC Comment DIFF FINAL Differential Comment Date/Time Source Procedure Growth Status 06/07/17 22:30 Blood Peripheral Aerobic Blood Culture - Preliminary NO GROWTH IN 1 DAY Resulted 06/07/17 22:30 Blood Peripheral Anaerobic Blood Culture - Preliminary NO GROWTH IN 1 DAY Resulted MDM Interpretation(s) Patient is 27-year-old black female para 3 with DVT and pulmonary and was acute , workup in progress for the cause and heparin therapy begun to anticoagulate and will need anticoagulation for a few months Hypermenorrhea and menorrhagia long-term but currently not bleeding Plan Plan this patient from a gynecologic standpoint is minimal as she is not bleeding now there is not much I can do for if she were bleeding because she has a pulmonary embolus she is not a candidate for hormonal therapy, the only option from a hormonal standpoint would be a levonorgestrel secreting uterine system such as a Mirena IUD that they could be used and will give secondary amenorrhea or hypomenorrhea is a side effect and the progestational agent in that item does not circulate systemically only stays in the uterus and can be used in patients with a history of thromboembolism. Because she's had 3 sections I don't consider a good candidate for an endometrial ablation due to the risk of burning the bowel in someone with that many C-sections. And recommended a pelvic ultrasound just to delineate the anatomy better because the exam so compromised by her size and guarding Admitting diagnosis: DVT, Symptomatic anemia Diagnosis: hypermenorrhea/menorrhagia in a patient with PE Scripts No Active Prescriptions or Reported Meds Cruz Nobles II, MD Jun 08, 2017 22:45
--- NOTE | 2017-06-08 23:14 | RADRPT ---
EXAM DATE/TIME: 06/08/2017 22:38 [facility] COMPARISON: No previous studies available for comparison. INDICATIONS : Bleeding. MEDICAL HISTORY : Hypertension. Glasses. SURGICAL HISTORY : Tubal ligation. section. ENCOUNTER: Initial ACUITY: 1 day PAIN SCORE: 0/10 LOCATION: Bilateral pelvis MEASUREMENTS: UTERUS: 9.4 x 6.6 x 5.4 cm ENDOMETRIAL STRIPE: 6 mm RIGHT OVARY: 2.8 x 2.0 x 1.1 cm LEFT OVARY: 2.6 x 1.7 x 1.7 cm cm FINDINGS: Patient declined transvaginal imaging. UTERUS: The myometrium has homogeneous echotexture without mass. RIGHT OVARY: Ovary contains no mass or significant cystic lesion. LEFT OVARY: Ovary contains no mass or significant cystic lesion. MISCELLANEOUS: No free fluid. CONCLUSION: 1. Limited study due to lack of transvaginal imaging. 2. No acute abnormality observed. Fito Bernard Jr., MD on June 08, 2017 at 23:11 Board Certified Radiologist. This report was verified electronically.
[2017-06-09] VITALS (7 sets, daily range): BP systolic 141–163; BP diastolic 80–91; PULSE 84–103; RESP 19–20; TEMP 98–99.3; O2SAT 91–97
[2017-06-09] MEDS: AZITHROMYCIN INJ 500 MG in SODIUM CHLOR 0.9% 250 ML INJ 250 ML IV SCH (01:54)
[2017-06-09] MEDS: ACETAMINOPHEN/HYDROcodone 325 MG/5 MG TAB PO PRN ×2 (02:25→20:51)
[2017-06-09] MEDS: cefTRIAXone INJ 1,000 MG in SODIUM CHLORIDE 0.9% INJ 100 ML IV SCH (03:22)
[2017-06-09] MEDS: HEPARIN-D5W 25,000 U/250 ML 250 ML IV PRN ×2 (03:29→15:52)
[2017-06-09] MEDS: DOCUSATE SODIUM 50 MG/SENNA 8.6 MG TAB PO SCH ×2 (07:51→20:51)
[2017-06-09] MEDS: NIFEdipine 30 MG SUSTAINED RELEASE TAB PO SCH (07:52)
[2017-06-09] MEDS: SODIUM CHLORIDE 0.9% FLUSH 10 ML FLUSH IV FLUSH SCH ×2 (07:52→20:52)
[2017-06-09 08:27] LABS: AUTOMATED NEUTROPHIL # 16.1 TH/MM3 (1.8-7.7); BASOPHIL # 0.1 TH/MM3 (0-0.2); BASOPHIL % 0.3 % (0.0-2.0); EOSINOPHIL # 0.3 TH/MM3 (0-0.4); EOSINOPHIL % 1.5 % (0.0-4.0); HEMATOCRIT 30.5 % (35.0-46.0); HEMOGLOBIN 9.7 GM/DL (11.6-15.3); LYMPH % 10.9 % (9.0-44.0); LYMPHOCYTE # 2.2 TH/MM3 (1.0-4.8); MEAN CELL VOLUME 71.2 FL (80.0-100.0); MEAN CORPUSCULAR HEMOGLOBIN 22.6 PG (27.0-34.0); MEAN CORPUSCULAR HGB CONC 31.8 % (32.0-36.0); MEAN PLATELET VOLUME 8.1 FL (7.0-11.0); MONO % 7.1 % (0.0-8.0); MONOCYTE # 1.4 TH/MM3 (0-0.9); NEUT % 80.2 % (16.0-70.0); PLATELET COUNT 532 TH/MM3 (150-450); RED BLOOD COUNT 4.29 MIL/MM3 (4.00-5.30); RED CELL DISTRIBUTION WIDTH 21.4 % (11.6-17.2); WHITE BLOOD COUNT 20.1 TH/MM3 (4.0-11.0)
[2017-06-09 08:57] LABS: ALBUMIN 2.4 GM/DL (3.4-5.0); ALT (GPT) 16 U/L (10-53); AST (GOT) 11 U/L (15-37); BICARBONATE 25.7 MEQ/L (21.0-32.0); BLOOD UREA NITROGEN 6 MG/DL (7-18); CALCIUM 8.5 MG/DL (8.5-10.1); CHLORIDE 102 MEQ/L (98-107); CREATININE 0.55 MG/DL (0.50-1.00); GLOMERULAR FILTRATION RATE 163 ML/MIN (>89); GLUCOSE,RANDOM 87 MG/DL (74-106); SODIUM (NA) 137 MEQ/L (136-145)
[2017-06-09 08:58] LABS: ALKALINE PHOSPHATASE 53 U/L (45-117); TOTAL BILIRUBIN ADULT 0.6 MG/DL (0.2-1.0)
--- NOTE | 2017-06-09 09:08 | PD.ONC.PN ---
Subjective Subjective Remarks Afebrile overnight. Patient resting in bed, receiving ECHO. she is tired today she states. tolerating heparin gtt. no bleeding. Objective Data Date Time Temp Pulse Resp B/P (MAP) Pulse Ox O2 Delivery O2 Flow Rate FiO2 06/09/17 04:00 98.1 87 20 141/91 (108) 97 06/09/17 04:00 Nasal Cannula 2.00 06/09/17 04:00 84 06/09/17 00:00 Nasal Cannula 2.00 06/09/17 00:00 98.2 96 20 163/85 (111) 93 06/09/17 00:00 101 06/08/17 21:27 Nasal Cannula 2.00 06/08/17 20:00 97 06/08/17 20:00 99.5 98 20 154/83 (106) 92 06/08/17 17:58 Nasal Cannula 4.00 06/08/17 16:01 98.4 101 21 169/94 (119) 93 06/08/17 16:00 98 06/08/17 15:00 Nasal Cannula 4.00 06/08/17 14:01 99.4 107 20 149/90 (109) 92 06/08/17 13:55 99.4 114 20 164/86 (112) 87 06/08/17 13:50 Nasal Cannula 2.00 06/08/17 13:30 99.0 105 20 166/94 90 06/08/17 12:01 99.1 69 20 158/79 (105) 98 06/08/17 12:00 99 06/08/17 10:05 98.6 105 20 179/82 90 06/08/17 09:47 98.6 106 20 177/80 90 06/08/17 09:23 98.2 106 20 160/93 92 06/08/17 09:11 Nasal Cannula 2.00 06/09/17 06/09/17 06/09/17 07:00 15:00 23:00 Intake Total 894 ml Balance 894 ml Result Diagram: 06/09/1725 06/09/17624 Laboratory Results Laboratory Tests Test 06/08/17 09:04 06/08/17 14:40 06/08/17 14:48 06/09/17 06:23 Activated Partial Thromboplast Time 54.2 SEC 46.9 SEC 47.9 SEC Blood Urea Nitrogen 4 MG/DL Creatinine 0.52 MG/DL Random Glucose 97 MG/DL Total Protein 7.9 GM/DL Albumin 2.6 GM/DL Calcium Level 8.4 MG/DL Phosphorus Level 3.3 MG/DL Magnesium Level 2.0 MG/DL Alkaline Phosphatase 51 U/L Aspartate Amino Transf (AST/SGOT) 12 U/L Alanine Aminotransferase (ALT/SGPT) 18 U/L Total Bilirubin 0.5 MG/DL Sodium Level 138 MEQ/L Potassium Level 3.4 MEQ/L Chloride Level 105 MEQ/L Carbon Dioxide Level 25.5 MEQ/L Anion Gap 8 MEQ/L Estimat Glomerular Filtration Rate 174 ML/MIN Iron Level 16 MCG/DL Total Iron Binding Capacity 267 MCG/DL Percent Iron Saturation 6.0 % Ferritin 67 NG/ML Troponin I LESS THAN 0.02 NG/ML Vitamin B12 Level 1183 PG/ML Folate 12.5 NG/ML White Blood Count 19.6 TH/MM3 Red Blood Count 4.25 MIL/MM3 Hemoglobin 9.4 GM/DL Hematocrit 29.7 % Mean Corpuscular Volume 70.0 FL Mean Corpuscular Hemoglobin 22.2 PG Mean Corpuscular Hemoglobin Concent 31.8 % Red Cell Distribution Width 21.2 % Platelet Count 431 TH/MM3 Mean Platelet Volume 8.3 FL Neutrophils (%) (Auto) 79.4 % Lymphocytes (%) (Auto) 12.0 % Monocytes (%) (Auto) 7.3 % Eosinophils (%) (Auto) 0.9 % Basophils (%) (Auto) 0.4 % Neutrophils # (Auto) 15.6 TH/MM3 Lymphocytes # (Auto) 2.4 TH/MM3 Monocytes # (Auto) 1.4 TH/MM3 Eosinophils # (Auto) 0.2 TH/MM3 Basophils # (Auto) 0.1 TH/MM3 CBC Comment DIFF FINAL Differential Comment Test 06/09/17 06:25 White Blood Count 20.1 TH/MM3 Red Blood Count 4.29 MIL/MM3 Hemoglobin 9.7 GM/DL Hematocrit 30.5 % Mean Corpuscular Volume 71.2 FL Mean Corpuscular Hemoglobin 22.6 PG Mean Corpuscular Hemoglobin Concent 31.8 % Red Cell Distribution Width 21.4 % Platelet Count 532 TH/MM3 Mean Platelet Volume 8.1 FL Neutrophils (%) (Auto) 80.2 % Lymphocytes (%) (Auto) 10.9 % Monocytes (%) (Auto) 7.1 % Eosinophils (%) (Auto) 1.5 % Basophils (%) (Auto) 0.3 % Neutrophils # (Auto) 16.1 TH/MM3 Lymphocytes # (Auto) 2.2 TH/MM3 Monocytes # (Auto) 1.4 TH/MM3 Eosinophils # (Auto) 0.3 TH/MM3 Basophils # (Auto) 0.1 TH/MM3 CBC Comment DIFF FINAL Differential Comment Blood Urea Nitrogen 6 MG/DL Creatinine 0.55 MG/DL Random Glucose 87 MG/DL Total Protein 8.0 GM/DL Albumin 2.4 GM/DL Calcium Level 8.5 MG/DL Alkaline Phosphatase 53 U/L Aspartate Amino Transf (AST/SGOT) 11 U/L Alanine Aminotransferase (ALT/SGPT) 16 U/L Total Bilirubin 0.6 MG/DL Sodium Level 137 MEQ/L Potassium Level 3.6 MEQ/L Chloride Level 102 MEQ/L Carbon Dioxide Level 25.7 MEQ/L Anion Gap 9 MEQ/L Estimat Glomerular Filtration Rate 163 ML/MIN Culture Results Microbiology Date/Time Source Procedure Growth Status 06/07/17 22:30 Blood Peripheral Aerobic Blood Culture - Preliminary NO GROWTH IN 1 DAY Resulted 06/07/17 22:30 Blood Peripheral Anaerobic Blood Culture - Preliminary NO GROWTH IN 1 DAY Resulted 06/07/17 22:25 Blood Peripheral Aerobic Blood Culture - Preliminary NO GROWTH IN 1 DAY Resulted 06/07/17 22:25 Blood Peripheral Anaerobic Blood Culture - Preliminary NO GROWTH IN 1 DAY Resulted Administered Medications Medications (Trade) Dose Ordered Sig/Brent Route PRN Reason Start Time Stop Time Status Last Admin Dose Admin Heparin Sodium/ Dextrose 250 ml @ 18 mls/hr TITRATE PRN IV Coagulation Management 06/07/17 23:45 06/09/17 03:29 Sodium Chloride (NS Flush) 2 ml BID IV FLUSH 06/08/17 09:00 06/09/17 07:52 Acetaminophen/ Hydrocodone Bitart ([place] 5-325 Mg) 1 tab Q4H PRN PO PAIN SCALE 3 TO 5 06/07/17 23:45 06/09/17 02:25 Senna/Docusate Sodium (Coty-Colace) 1 tab BID PO 06/08/17 09:00 06/08/17 21:25 Ceftriaxone Sodium 1000 mg/ Sodium Chloride 100 ml @ 200 mls/hr Q24H IV 06/08/17 02:00 06/09/17 03:22 Azithromycin 500 mg/Sodium Chloride 250 ml @ 250 mls/hr Q24H IV 06/08/17 01:00 06/09/17 01:54 Nifedipine (Procardia Xl) 30 mg DAILY PO 06/08/17 09:00 06/09/17 07:52 Clonidine (Catapres) 0.1 mg Q6H PRN PO SYS BP GREATER THAN 160 MMHG 06/08/17 13:15 06/09/17 01:58 Objective Remarks GENERAL: Pleasant obese female lying in bed receiving echo. SKIN: Warm and dry. HEAD: Normocephalic. EYES: No injection or drainage. NECK: Supple, trachea midline. CARDIOVASCULAR: Regular rate and rhythm RESPIRATORY: diminished at bases, occasional inspiratory and expiratory wheeze GASTROINTESTINAL: Abdomen soft, non-tender, nondistended. EXTREMITIES: No cyanosis MUSCULOSKELETAL: Adequate muscle tone. NEUROLOGICAL: no obvious focal deficit. awake and alert. Assessment/Plan Problem List: (1) PE (pulmonary thromboembolism) ICD Codes: I26.99 - Other pulmonary embolism without acute cor pulmonale Plan: --on heparin gtt +sedentary lifestyle --no known family history --will need at minimum three months of anticoagulation. --fs faxed to new patient referrals for follow up in 3 months -- Will consider hypercoagulable workup in the outpatient setting. (2) DVT (deep venous thrombosis) ICD Codes: I82.409 - Acute embolism and thrombosis of unspecified deep veins of unspecified lower extremity Status: Acute (3) Microcytic anemia ICD Codes: D50.9 - Iron deficiency anemia, unspecified Plan: --s/p 3 units pRBC during this admission, may benefit from IV iron --TIBC WNL with total serum iron and %saturation low--consistent with iron deficiency anemia --B12 WNL ++Heavy menstrual blood loss. gynecology consulted Assessment 27-year-old admitted with RLE DVT and PE + Anemia. h/o hypertension Plan 1. continue heparin gtt 2. face sheet faxed to new patient referrals 3. I attempted to discuss NOAC choices with the patient, but she stated she was tired and would rather discuss them tomorrow. will likely start Eliquis. Attending Statement The exam, history, and the medical decision-making described in the above note were completed with the assistance of the mid-level provider. I reviewed and agree with the findings presented. I attest that I had a [id number] encounter with the patient on the same day, and personally performed and documented my assessment and findings in the medical record. 27 yoF admitted with VTE. Sedentary lifestyle and pneumonia prior to admission. Heparin inpatient transition to apixaban in the outpatient setting. JANETH s/p blood transfusion. Problem Qualifiers (1) DVT (deep venous thrombosis): Qualified Codes: I82.401 - Acute embolism and thrombosis of unspecified deep veins of right lower extremity Susie Neff Jun 09, 2017 09:08 Fara Min MD Jun 10, 2017 07:00
[2017-06-09] MEDS ORDERED: FUROSEMIDE 40 MG/4 ML VIAL IV PUSH ONE (15:15)
--- NOTE | 2017-06-09 15:17 | HHI.PR ---
Subjective Remarks States chest pain resolved and calf pain better today. Afebrile. WBC trending up at 20 k. Objective Vitals Vital Signs Date Time Temp Pulse Resp B/P (MAP) Pulse Ox O2 Delivery O2 Flow Rate FiO2 06/09/17 12:00 98.8 93 20 143/81 (101) 93 06/09/17 12:00 Nasal Cannula 2.00 06/09/17 08:00 Nasal Cannula 2.00 06/09/17 08:00 98.0 87 20 156/83 (107) 95 06/09/17 04:00 98.1 87 20 141/91 (108) 97 06/09/17 04:00 Nasal Cannula 2.00 06/09/17 04:00 84 06/09/17 00:00 Nasal Cannula 2.00 06/09/17 00:00 98.2 96 20 163/85 (111) 93 06/09/17 00:00 101 06/08/17 21:27 Nasal Cannula 2.00 06/08/17 20:00 97 06/08/17 20:00 99.5 98 20 154/83 (106) 92 06/08/17 17:58 Nasal Cannula 4.00 06/08/17 16:01 98.4 101 21 169/94 (119) 93 06/08/17 16:00 98 I/O 06/08/17 06/08/17 06/08/17 06/09/17 06/09/17 06/09/17 07:00 15:00 23:00 07:00 15:00 23:00 Intake Total 2010 ml 825 ml 480 ml 894 ml Balance 2010 ml 825 ml 480 ml 894 ml Intake Oral 240 ml 480 ml 240 ml IV Total 1350 ml 654 ml Packed Cells 400 ml 800 ml Blood Product IV Normal Saline Flush 20 ml 25 ml # Voids 1 4 1 # Bowel Movements 0 0 0 Result Diagram: 06/09/17 0625 06/09/17 0625 Imaging Last Impressions Pelvis Ultrasound 06/08/17 0000 Signed Impressions: Service Date/Time: Thursday, June 08, 2017 22:38 - CONCLUSION: 1. Limited study due to lack of transvaginal imaging. 2. No acute abnormality observed. Fito Bernard Jr., MD CT Angiography 06/07/17 2324 Signed Impressions: Service Date/Time: Thursday, June 08, 2017 00:04 - CONCLUSION: 1. Widespread small bilateral pulmonary emboli. 2. Left greater than right pulmonary consolidation. Please see above. 3. Nonspecific mediastinal lymphadenopathy, mostly subcarinal. Chevy Brower MD Chest X-Ray 06/07/17 2209 Signed Impressions: Service Date/Time: Wednesday, June 07, 2017 22:20 - CONCLUSION: No change in slight cardiomegaly. Red Dowling MD Lower Extremity Ultrasound 06/07/17 0000 Signed Impressions: Service Date/Time: Wednesday, June 07, 2017 22:41 - CONCLUSION: Positive study for right lower extremity DVT involving the posterior tibial vein. Chevy Brower MD Objective Remarks GENERAL: Young black female in no acute distress. HEENT: PERRLA, EOMI. No scleral icterus or conjunctival pallor. No lid lag or facial droop. CARDIOVASCULAR: Regular rate and rhythm. No obvious murmurs to auscultation. No chest tenderness to palpation. RESPIRATORY: No obvious rhonchi or wheezing. Clear to auscultation. Breath sounds equal bilaterally. GASTROINTESTINAL: Abdomen soft, non-tender, nondistended. BS normal. MUSCULOSKELETAL: LLE without clubbing, cyanosis, or edema. No obvious deformities. RLE w/ +1 edema, tenderness to palpation over calf. NEUROLOGICAL: Awake, alert and oriented x4. No focal neurologic deficits. Moving both upper and lower extremities spontaneously. Medications and IVs Current Medications Medications (Trade) Dose Ordered Sig/Brent Route Start Time Stop Time Status Last Admin Heparin Sodium/ Dextrose 250 ml @ 18 mls/hr TITRATE PRN IV 06/07/17 23:45 06/09/17 03:29 (Duoneb Neb) 1 ampule Q4HR NEB PRN NEB 06/07/17 23:45 (NS Flush) 2 ml UNSCH PRN IV FLUSH 06/07/17 23:45 (NS Flush) 2 ml BID IV FLUSH 06/08/17 09:00 06/09/17 07:52 (Zofran Inj) 4 mg Q6H PRN IVP 06/07/17 23:45 (Tylenol) 650 mg Q6H PRN PO 06/07/17 23:45 ([place] 5-325 Mg) 1 tab Q4H PRN PO 06/07/17 23:45 06/09/17 02:25 (Morphine Inj) 2 mg Q3H PRN IV PUSH 06/07/17 23:45 (Coty-Colace) 1 tab BID PO 06/08/17 09:00 06/08/17 21:25 (Milk Of Magnesia Liq) 30 ml Q12H PRN PO 06/07/17 23:45 (Senokot) 17.2 mg Q12H PRN PO 06/07/17 23:45 (Dulcolax Supp) 10 mg DAILY PRN RECTAL 06/07/17 23:45 (Lactulose Liq) 30 ml DAILY PRN PO 06/07/17 23:45 Ceftriaxone Sodium 1000 mg/ Sodium Chloride 100 ml @ 200 mls/hr Q24H IV 06/08/17 02:00 06/09/17 03:22 Azithromycin 500 mg/Sodium Chloride 250 ml @ 250 mls/hr Q24H IV 06/08/17 01:00 06/09/17 01:54 (Procardia Xl) 30 mg DAILY PO 06/08/17 09:00 06/09/17 07:52 (Catapres) 0.1 mg Q6H PRN PO 06/08/17 13:15 06/09/17 01:58 A/P Problem List: (1) DVT (deep venous thrombosis) ICD Code: I82.409 - Acute embolism and thrombosis of unspecified deep veins of unspecified lower extremity Status: Acute (2) PE (pulmonary thromboembolism) ICD Code: I26.99 - Other pulmonary embolism without acute cor pulmonale (3) HTN (hypertension) ICD Code: I10 - Essential (primary) hypertension (4) Anemia ICD Code: D64.9 - Anemia, unspecified Status: Acute (5) Tobacco abuse ICD Code: Z72.0 - Tobacco use Assessment and Plan 1. DVT: acute onset of RLE pain/swelling, no trauma/injury. Doppler RLE + DVT. No previous h/o DVT, no recent travel/injury/surgery/immobility, no family h/o DVT. Analgesics/antiemetics as needed. 06/08 hematology consulted. Appreciate recommendations. The case was discussed with Dr. Min who recommends continuation of IV heparin and possibly switching to Eliquis for outpatient therapy.' 06/09/17 Continue IV heparin drip. Oral anticoagulation as per hematology. 2. PE: CTA Pulm w/ widespread small bilateral PE, images reviewed by me, unclear etiology, no risk factors as above. Started on Heparin gtt, caution w/ anemia, however will proceed w/ anticoagulation as pt hemodynamically stable and high risk of further PE. Consult Hematology for recommendations regarding anticoagulation in light of profound anemia requiring transfusion. Check trop and Check Echo to eval for cardiac strain. DuoNeb/Symbicort prn for bronchospasm from widespread PE. 06/08 continue IV heparin drip as above. Continue supplemental oxygen to keep oxygen saturations more than 92%. Patient with oxygen saturation which could be secondary to fluid overload versus PE. 3. Anemia: Likely Iron Deficiency Anemia, reports chronic, heavy menstrual bleeding. Previous h/o Iron infusions in the past, however pt non-compliant w/ follow-up. Hgb 6.1, repeat confirmed at 5.8. Check Ferritin/Iron/TIBC. Transfuse 2u pRBC, repeat Hgb. Consult Hematology as above for further eval of anemia. 06/08 HEEL SPRAYER consulted. The patient is finishing the third unit of packed red blood cells. Follow-up iron studies 4. Sepsis/PNA: w/ failed outpatient therapy. S/p Zithro 500mg po x2 courses of treatment, CTA Pulm w/ left greater than right consolidation, images reviewed by me. Started Rocephin/Zithro IV, DuoNeb prn. 06/08 continue IV Rocephin and IV azithromycin. Sepsis criteria met on admission. Patient tachycardic and with leukocytosis. 06/09/17 Add IV Flagyl since WBC trending up. Monitor cbc. Check urinalysis. 5. HTN: Uncontrolled secondary to non-compliance. BP 241/109, HR 120 on arrival, currently 179/90, HR 107. Start Nifedipine. Hold B-casie in light of widespread PE and SOB. 6. SOB: Patient complained of shortness of breath and oxygen saturation dropping down to the high 80s on 06/08 \ Oxygen saturation much improved after IV lasix - Will repeat IV Lasix dose today. Continue supplemental o2 to keep o2 sat >92%. 6. Tobacco Abuse: Heparin gtt for acute DVT/PE 7. Social work for d/c planning as needed. Discharge Planning Continue to monitor in the medical floor. Patient still with severe anemia, leukocytosis, hypoxemia. Problem Qualifiers (1) DVT (deep venous thrombosis): Qualified Codes: I82.401 - Acute embolism and thrombosis of unspecified deep veins of right lower extremity (2) Anemia: Qualified Codes: D64.9 - Anemia, unspecified Austin Sellers MD Jun 09, 2017 15:17
--- NOTE | 2017-06-09 16:05 | ECHRPT ---
Indication: CARDIOMYOPATHY CONCLUSIONS Mildly dilated left ventricle. Mild concentric left ventricular hypertrophy. There is mild tricuspid valve regurgitation. The pulmonary valve is not well visualized. There is a small pericardial effusion present. No hemodynamically significant echocardiographic features were observed (no pre-tamponade physiology). BP: / HR: Rhythm: MEASUREMENTS (Male / Female) Normal Values Technical Quality:Good 2D ECHO LV Diastolic Diameter PLAX 4.6 cm 4.2 - 5.9 / 3.9 - 5.3 cm LV Systolic Diameter PLAX 3.5 cm IVS Diastolic Thickness 1.8 cm 0.6 - 1.0 / 0.6 - 0.9 cm LVPW Diastolic Thickness 1.2 cm 0.6 - 1.0 / 0.6 - 0.9 cm LV Relative Wall Thickness 0.7 RV Internal Dim ED PLAX 1.9 cm LA Systolic Diameter LX 3.5 cm 3.0 - 4.0 / 2.7 - 3.8 cm M-MODE Aortic Root Diameter MM 3.2 cm AV Cusp Separation MM 2.1 cm DOPPLER Mitral E Point Velocity 76.5 cm/s Mitral A Point Velocity 83.4 cm/s Mitral E to A Ratio 0.9 TR Peak Velocity 273.0 cm/s TR Peak Gradient 29.8 mmHg FINDINGS LEFT VENTRICLE Mildly dilated left ventricle. Mild concentric left ventricular hypertrophy. The left ventricular systolic function is normal with an estimated ejection fraction in the range of 60-65%. RIGHT VENTRICLE Normal right ventricular size and systolic function. LEFT ATRIUM The left atrial size is normal. RIGHT ATRIUM The right atrial size is normal. ATRIAL SEPTUM Normal atrial septal thickness without atrial level shunting by limited color doppler interrogation. AORTA The aortic root and proximal ascending aorta are normal in size on limited imaging. MITRAL VALVE Structurally normal mitral valve. No mitral valve stenosis or regurgitation. AORTIC VALVE Trileaflet aortic valve. No aortic valve stenosis or regurgitation. TRICUSPID VALVE There is mild tricuspid valve regurgitation. PULMONARY VALVE The pulmonary valve is not well visualized. VESSELS The inferior vena cava is normal in size. PERICARDIUM There is a small pericardial effusion present. No hemodynamically significant echocardiographic features were observed (no pre-tamponade physiology). Alhaji Mccullough MD, FACC (Electronically Signed) Final Date:09 June 2017 16:04
[2017-06-09] MEDS: metroNIDAZOLE 500 MG INJ 100 ML IV SCH ×2 (16:41→23:31)
[2017-06-09 17:16] LABS: BACTERIA, URINE OCC /hpf; BILIRUBIN, URINE NEG (NEG); BLOOD, URINE LARGE (NEG); GLUCOSE,URINE NEG (NEG); KETONE, URINE NEG (NEG); MUCUS URINE FEW /lpf (OCC); NITRITE,URINE NEG (NEG); SQUAMOUS EPITHELIAL CELL URINE 20 /hpf (0-5); URINE LEUKOCYTE ESTERASE LARGE (NEG)
[2017-06-09 17:18] LABS: URINE COLOR DARK-YELLOW (YELLW/STRAW)
[2017-06-10] VITALS (10 sets, daily range): BP systolic 141–157; BP diastolic 72–91; PULSE 82–107; RESP 16–20; TEMP 98.1–98.7; O2SAT 93–96
[2017-06-10] MEDS: ACETAMINOPHEN/HYDROcodone 325 MG/5 MG TAB PO PRN ×5 (00:34→23:00)
[2017-06-10] MEDS: AZITHROMYCIN INJ 500 MG in SODIUM CHLOR 0.9% 250 ML INJ 250 ML IV SCH (00:35)
[2017-06-10] MEDS: cefTRIAXone INJ 1,000 MG in SODIUM CHLORIDE 0.9% INJ 100 ML IV SCH (02:27)
[2017-06-10] MEDS: HEPARIN-D5W 25,000 U/250 ML 250 ML IV PRN ×2 (07:06→19:13)
[2017-06-10 07:39] LABS: AUTOMATED NEUTROPHIL # 13.3 TH/MM3 (1.8-7.7); BASOPHIL # 0.1 TH/MM3 (0-0.2); BASOPHIL % 0.4 % (0.0-2.0); EOSINOPHIL # 0.1 TH/MM3 (0-0.4); EOSINOPHIL % 0.9 % (0.0-4.0); HEMATOCRIT 28.9 % (35.0-46.0); HEMOGLOBIN 9.1 GM/DL (11.6-15.3); LYMPH % 11.5 % (9.0-44.0); MEAN CELL VOLUME 69.6 FL (80.0-100.0); MEAN CORPUSCULAR HEMOGLOBIN 21.9 PG (27.0-34.0); MEAN CORPUSCULAR HGB CONC 31.5 % (32.0-36.0); MEAN PLATELET VOLUME 7.8 FL (7.0-11.0); MONO % 9.2 % (0.0-8.0); MONOCYTE # 1.6 TH/MM3 (0-0.9); PLATELET COUNT 595 TH/MM3 (150-450); RED BLOOD COUNT 4.15 MIL/MM3 (4.00-5.30); RED CELL DISTRIBUTION WIDTH 21.5 % (11.6-17.2); WHITE BLOOD COUNT 17.1 TH/MM3 (4.0-11.0)
[2017-06-10 07:59] LABS: ALBUMIN 2.3 GM/DL (3.4-5.0); AST (GOT) 10 U/L (15-37); BICARBONATE 27.5 MEQ/L (21.0-32.0); BLOOD UREA NITROGEN 7 MG/DL (7-18); CALCIUM 8.5 MG/DL (8.5-10.1); CHLORIDE 102 MEQ/L (98-107); CREATININE 0.54 MG/DL (0.50-1.00); GLOMERULAR FILTRATION RATE 166 ML/MIN (>89); GLUCOSE,RANDOM 100 MG/DL (74-106); MAGNESIUM 2.1 MG/DL (1.5-2.5); SODIUM (NA) 137 MEQ/L (136-145)
[2017-06-10 08:02] LABS: ALKALINE PHOSPHATASE 50 U/L (45-117); ALT (GPT) 16 U/L (10-53); PHOSPHORUS 4.2 MG/DL (2.5-4.9); TOTAL BILIRUBIN ADULT 0.4 MG/DL (0.2-1.0)
--- NOTE | 2017-06-10 09:24 | PD.ONC.PN ---
Subjective Subjective Remarks Afebrile overnight. Patient tolerating heparin drip. Still having pain in RLE, especially when walking. She is able to ambulate with O2. Objective Data Date Time Temp Pulse Resp B/P (MAP) Pulse Ox O2 Delivery O2 Flow Rate FiO2 06/10/17 04:00 98.2 93 18 148/85 (106) 96 06/10/17 04:00 92 06/10/17 04:00 Nasal Cannula 2.00 06/10/17 01:16 Nasal Cannula 2.00 06/10/17 01:16 92 06/10/17 00:00 98.7 97 18 141/83 (102) 94 06/09/17 20:30 Nasal Cannula 2.00 06/09/17 20:30 103 06/09/17 20:00 98.7 103 19 158/80 (106) 93 06/09/17 17:15 Nasal Cannula 2.00 06/09/17 16:00 100 06/09/17 16:00 99.3 102 20 157/84 (108) 91 06/09/17 15:00 Nasal Cannula 2.00 06/09/17 12:00 98.8 93 20 143/81 (101) 93 06/09/17 12:00 Nasal Cannula 2.00 06/09/17 12:00 97 06/10/17 06/10/17 06/10/17 07:00 15:00 23:00 Intake Total 810 ml Balance 810 ml Result Diagram: 06/10/17 0620 06/10/17 0620 Laboratory Results Laboratory Tests Test 06/09/17 16:45 06/10/17 06:20 Urine Color DARK-YELLOW Urine Turbidity HAZY Urine pH 6.0 Urine Specific [place] 1.022 Urine Protein 30 mg/dL Urine Glucose (UA) NEG mg/dL Urine Ketones NEG mg/dL Urine Occult Blood LARGE Urine Nitrite NEG Urine Bilirubin NEG Urine Urobilinogen LESS THAN 2.0 MG/DL Urine Leukocyte Esterase LARGE Urine WBC 24 /hpf Urine Squamous Epithelial Cells 20 /hpf Urine Bacteria OCC /hpf Urine Mucus FEW /lpf Microscopic Urinalysis Comment CULTURE INDICATED White Blood Count 17.1 TH/MM3 Red Blood Count 4.15 MIL/MM3 Hemoglobin 9.1 GM/DL Hematocrit 28.9 % Mean Corpuscular Volume 69.6 FL Mean Corpuscular Hemoglobin 21.9 PG Mean Corpuscular Hemoglobin Concent 31.5 % Red Cell Distribution Width 21.5 % Platelet Count 595 TH/MM3 Mean Platelet Volume 7.8 FL Neutrophils (%) (Auto) 78.0 % Lymphocytes (%) (Auto) 11.5 % Monocytes (%) (Auto) 9.2 % Eosinophils (%) (Auto) 0.9 % Basophils (%) (Auto) 0.4 % Neutrophils # (Auto) 13.3 TH/MM3 Lymphocytes # (Auto) 2.0 TH/MM3 Monocytes # (Auto) 1.6 TH/MM3 Eosinophils # (Auto) 0.1 TH/MM3 Basophils # (Auto) 0.1 TH/MM3 CBC Comment DIFF FINAL Differential Comment Activated Partial Thromboplast Time 47.1 SEC Blood Urea Nitrogen 7 MG/DL Creatinine 0.54 MG/DL Random Glucose 100 MG/DL Total Protein 8.0 GM/DL Albumin 2.3 GM/DL Calcium Level 8.5 MG/DL Phosphorus Level 4.2 MG/DL Magnesium Level 2.1 MG/DL Alkaline Phosphatase 50 U/L Aspartate Amino Transf (AST/SGOT) 10 U/L Alanine Aminotransferase (ALT/SGPT) 16 U/L Total Bilirubin 0.4 MG/DL Sodium Level 137 MEQ/L Potassium Level 3.5 MEQ/L Chloride Level 102 MEQ/L Carbon Dioxide Level 27.5 MEQ/L Anion Gap 8 MEQ/L Estimat Glomerular Filtration Rate 166 ML/MIN Culture Results Microbiology Date/Time Source Procedure Growth Status 06/07/17 22:30 Blood Peripheral Aerobic Blood Culture - Preliminary NO GROWTH IN 2 DAYS Resulted 06/07/17 22:30 Blood Peripheral Anaerobic Blood Culture - Preliminary NO GROWTH IN 2 DAYS Resulted 06/07/17 22:25 Blood Peripheral Aerobic Blood Culture - Preliminary NO GROWTH IN 2 DAYS Resulted 06/07/17 22:25 Blood Peripheral Anaerobic Blood Culture - Preliminary NO GROWTH IN 2 DAYS Resulted 06/09/17 16:45 Urine Clean Catch Urine Culture Pending Received Administered Medications Medications (Trade) Dose Ordered Sig/Brent Route PRN Reason Start Time Stop Time Status Last Admin Dose Admin Heparin Sodium/ Dextrose 250 ml @ 18 mls/hr TITRATE PRN IV Coagulation Management 06/07/17 23:45 06/10/17 07:06 Sodium Chloride (NS Flush) 2 ml BID IV FLUSH 06/08/17 09:00 06/09/17 20:52 Acetaminophen/ Hydrocodone Bitart ([place] 5-325 Mg) 1 tab Q4H PRN PO PAIN SCALE 3 TO 5 06/07/17 23:45 06/10/17 04:51 Senna/Docusate Sodium (Coty-Colace) 1 tab BID PO 06/08/17 09:00 06/09/17 20:51 Ceftriaxone Sodium 1000 mg/ Sodium Chloride 100 ml @ 200 mls/hr Q24H IV 06/08/17 02:00 06/10/17 02:27 Azithromycin 500 mg/Sodium Chloride 250 ml @ 250 mls/hr Q24H IV 06/08/17 01:00 06/10/17 00:35 Nifedipine (Procardia Xl) 30 mg DAILY PO 06/08/17 09:00 06/09/17 07:52 Clonidine (Catapres) 0.1 mg Q6H PRN PO SYS BP GREATER THAN 160 MMHG 06/08/17 13:15 06/09/17 01:58 Metronidazole 100 ml @ 100 mls/hr Q8H IV 06/09/17 15:30 06/09/17 23:31 Objective Remarks GENERAL: Pleasant female sitting up in bed in nad. SKIN: Warm and dry. HEAD: Normocephalic. EYES: No injection or drainage. NECK: Supple, trachea midline. CARDIOVASCULAR: Regular rate and rhythm RESPIRATORY: occasional wheeze, on 2L O2 via NC GASTROINTESTINAL: Abdomen soft, non-tender, nondistended. EXTREMITIES: No cyanosis MUSCULOSKELETAL: Adequate muscle tone. NEUROLOGICAL:awake, alert. normal speech. Assessment/Plan Problem List: (1) PE (pulmonary thromboembolism) ICD Codes: I26.99 - Other pulmonary embolism without acute cor pulmonale Plan: --on heparin gtt-->would discharge on Eliquis. +sedentary lifestyle --no known family history --will need at minimum three months of anticoagulation. --fs faxed to new patient referrals for follow up in 2-3 weeks -- Will consider hypercoagulable workup in the outpatient setting. (2) DVT (deep venous thrombosis) ICD Codes: I82.409 - Acute embolism and thrombosis of unspecified deep veins of unspecified lower extremity Status: Acute (3) Microcytic anemia ICD Codes: D50.9 - Iron deficiency anemia, unspecified Plan: --s/p 3 units pRBC during this admission, may benefit from IV iron --TIBC WNL with total serum iron and %saturation low--consistent with iron deficiency anemia --B12 WNL ++Heavy menstrual blood loss. gynecology consulted Assessment 27-year-old admitted with RLE DVT and PE + Anemia. h/o hypertension Plan 1. continue heparin gtt 2. would d/c on Eliquis. 3. follow up in clinic in 2-3 weeks. Attending Statement The exam, history, and the medical decision-making described in the above note were completed with the assistance of the mid-level provider. I reviewed and agree with the findings presented. I attest that I had a [id number] encounter with the patient on the same day, and personally performed and documented my assessment and findings in the medical record. 27 yoF admitted with anemia and VTE. Long discussion with sister this evening. Patient with several weeks of decreased acitivity, laying in bed due to bronchitis followed by pneumonia. Normally she is active and taking care of her kids. She continues to have decreased mobility due to pain in her leg. On heparin gtt once appropriate for discharge would d/c on apixaban. Anemia due to menstrual blood loss s/p gynecology evaluation. Stool for occult blood pending. Problem Qualifiers (1) DVT (deep venous thrombosis): Qualified Codes: I82.401 - Acute embolism and thrombosis of unspecified deep veins of right lower extremity Susie Neff Jun 10, 2017 09:24 Fara Min MD Jun 11, 2017 00:32
[2017-06-10] MEDS ORDERED: POTASSIUM CHLORIDE 10 MEQ CONTROLLED RELEASE TAB PO ONE (10:00)
[2017-06-10] MEDS: DOCUSATE SODIUM 50 MG/SENNA 8.6 MG TAB PO SCH ×2 (11:21→21:00)
[2017-06-10] MEDS: metroNIDAZOLE 500 MG INJ 100 ML IV SCH ×3 (11:22→23:00)
[2017-06-10] MEDS: SODIUM CHLORIDE 0.9% FLUSH 10 ML FLUSH IV FLUSH SCH ×2 (11:22→23:00)
--- NOTE | 2017-06-10 14:23 | HHI.PR ---
Subjective Remarks Denies cp/sob. BP elevated. WBC trending down. Objective Vitals Vital Signs Date Time Temp Pulse Resp B/P (MAP) Pulse Ox O2 Delivery O2 Flow Rate FiO2 06/10/17 08:00 98.1 90 20 157/83 (107) 93 06/10/17 04:00 98.2 93 18 148/85 (106) 96 06/10/17 04:00 92 06/10/17 04:00 Nasal Cannula 2.00 06/10/17 01:16 Nasal Cannula 2.00 06/10/17 01:16 92 06/10/17 00:00 98.7 97 18 141/83 (102) 94 06/09/17 20:30 Nasal Cannula 2.00 06/09/17 20:30 103 06/09/17 20:00 98.7 103 19 158/80 (106) 93 06/09/17 17:15 Nasal Cannula 2.00 06/09/17 16:00 100 06/09/17 16:00 99.3 102 20 157/84 (108) 91 06/09/17 15:00 Nasal Cannula 2.00 I/O 06/09/17 06/09/17 06/09/17 06/10/17 06/10/17 06/10/17 07:00 15:00 23:00 07:00 15:00 23:00 Intake Total 894 ml 580 ml 810 ml Output Total 600 ml Balance 894 ml 580 ml 810 ml -600 ml Intake Oral 240 ml 480 ml 360 ml IV Total 654 ml 100 ml 450 ml Output Urine Total 600 ml # Voids 1 1 3 # Bowel Movements 0 0 0 Result Diagram: 06/10/17 0620 06/10/17 0620 Imaging Last Impressions Pelvis Ultrasound 06/08/17 0000 Signed Impressions: Service Date/Time: Thursday, June 08, 2017 22:38 - CONCLUSION: 1. Limited study due to lack of transvaginal imaging. 2. No acute abnormality observed. Fito Bernard Jr., MD CT Angiography 06/07/17 [id number] Signed Impressions: Service Date/Time: Thursday, June 08, 2017 00:04 - CONCLUSION: 1. Widespread small bilateral pulmonary emboli. 2. Left greater than right pulmonary consolidation. Please see above. 3. Nonspecific mediastinal lymphadenopathy, mostly subcarinal. Chevy Brower MD Chest X-Ray 06/07/179 Signed Impressions: Service Date/Time: Wednesday, June 07, 2017 22:20 - CONCLUSION: No change in slight cardiomegaly. Red Dowling MD Lower Extremity Ultrasound 06/07/17 0000 Signed Impressions: Service Date/Time: Wednesday, June 07, 2017 22:41 - CONCLUSION: Positive study for right lower extremity DVT involving the posterior tibial vein. Chevy Brower MD Objective Remarks GENERAL: Young black female in no acute distress. HEENT: PERRLA, EOMI. No scleral icterus or conjunctival pallor. No lid lag or facial droop. CARDIOVASCULAR: Regular rate and rhythm. No obvious murmurs to auscultation. No chest tenderness to palpation. RESPIRATORY: No obvious rhonchi or wheezing. Clear to auscultation. Breath sounds equal bilaterally. GASTROINTESTINAL: Abdomen soft, non-tender, nondistended. BS normal. MUSCULOSKELETAL: LLE without clubbing, cyanosis, or edema. No obvious deformities. RLE w/ +1 edema, tenderness to palpation over calf. NEUROLOGICAL: Awake, alert and oriented x4. No focal neurologic deficits. Moving both upper and lower extremities spontaneously. Medications and IVs Current Medications Medications (Trade) Dose Ordered Sig/Brent Route Start Time Stop Time Status Last Admin Heparin Sodium/ Dextrose 250 ml @ 18 mls/hr TITRATE PRN IV 06/07/17 23:45 06/10/17 07:06 (Duoneb Neb) 1 ampule Q4HR NEB PRN NEB 06/07/17 23:45 (NS Flush) 2 ml UNSCH PRN IV FLUSH 06/07/17 23:45 (NS Flush) 2 ml BID IV FLUSH 06/08/17 09:00 06/10/17 11:22 (Zofran Inj) 4 mg Q6H PRN IVP 06/07/17 23:45 (Tylenol) 650 mg Q6H PRN PO 06/07/17 23:45 ([place] 5-325 Mg) 1 tab Q4H PRN PO 06/07/17 23:45 06/10/17 13:03 (Morphine Inj) 2 mg Q3H PRN IV PUSH 06/07/17 23:45 (Coty-Colace) 1 tab BID PO 06/08/17 09:00 06/10/17 11:21 (Milk Of Magnesia Liq) 30 ml Q12H PRN PO 06/07/17 23:45 (Senokot) 17.2 mg Q12H PRN PO 06/07/17 23:45 (Dulcolax Supp) 10 mg DAILY PRN RECTAL 06/07/17 23:45 (Lactulose Liq) 30 ml DAILY PRN PO 06/07/17 23:45 Ceftriaxone Sodium 1000 mg/ Sodium Chloride 100 ml @ 200 mls/hr Q24H IV 06/08/17 02:00 06/10/17 02:27 Azithromycin 500 mg/Sodium Chloride 250 ml @ 250 mls/hr Q24H IV 06/08/17 01:00 06/10/17 00:35 (Catapres) 0.1 mg Q6H PRN PO 06/08/17 13:15 06/09/17 01:58 Metronidazole 100 ml @ 100 mls/hr Q8H IV 06/09/17 15:30 06/10/17 11:22 (Procardia Xl) 60 mg DAILY PO 06/11/17 09:00 A/P Problem List: (1) DVT (deep venous thrombosis) ICD Code: I82.409 - Acute embolism and thrombosis of unspecified deep veins of unspecified lower extremity Status: Acute (2) PE (pulmonary thromboembolism) ICD Code: I26.99 - Other pulmonary embolism without acute cor pulmonale (3) HTN (hypertension) ICD Code: I10 - Essential (primary) hypertension (4) Anemia ICD Code: D64.9 - Anemia, unspecified Status: Acute (5) Tobacco abuse ICD Code: Z72.0 - Tobacco use Assessment and Plan 1. DVT: acute onset of RLE pain/swelling, no trauma/injury. Doppler RLE + DVT. No previous h/o DVT, no recent travel/injury/surgery/immobility, no family h/o DVT. Analgesics/antiemetics as needed. 06/08 hematology consulted. Appreciate recommendations. The case was discussed with Dr. Min who recommends continuation of IV heparin and possibly switching to Eliquis for outpatient therapy.' 06/09/17 Continue IV heparin drip. Oral anticoagulation as per hematology. 06/10/17 As per hematology continue heparin gtt, will Dc on eliquis to home. 2. PE: CTA Pulm w/ widespread small bilateral PE, images reviewed by me, unclear etiology, no risk factors as above. Started on Heparin gtt, caution w/ anemia, however will proceed w/ anticoagulation as pt hemodynamically stable and high risk of further PE. Consult Hematology for recommendations regarding anticoagulation in light of profound anemia requiring transfusion. Check trop and Check Echo to eval for cardiac strain. DuoNeb/Symbicort prn for bronchospasm from widespread PE. 06/08 continue IV heparin drip as above. Continue supplemental oxygen to keep oxygen saturations more than 92%. Patient with oxygen saturation which could be secondary to fluid overload versus PE. 3. Anemia: Likely Iron Deficiency Anemia, reports chronic, heavy menstrual bleeding. Previous h/o Iron infusions in the past, however pt non-compliant w/ follow-up. Hgb 6.1, repeat confirmed at 5.8. Check Ferritin/Iron/TIBC. Transfuse 2u pRBC, repeat Hgb. Consult Hematology as above for further eval of anemia. 06/08 TAKE DOWN SORTER consulted. The patient is finishing the third unit of packed red blood cells. Follow-up iron studies 1/2 teslas posterior fusion of 3 units of packed blood cells. Hemoglobin is relatively stable with a hemoglobin of 9.1. Iron studies consistent with iron deficiency anemia likely secondary to menorrhagia. TAKE DOWN SORTER consulted. Patient is not a candidate for hormonal therapy to treat menorrhagia. Recommended that level norgestrel 17 uterine system such as Mirena IUD could be used and will give secondary amenorrhea or hypomenorrhea as a side effect of the progestational agent, as per gynecology this agent is not absorbed systemically and only stays in the the uterus and can be used safely in patients with a history of thromboembolism. 4. Sepsis/PNA: w/ failed outpatient therapy. S/p Zithro 500mg po x2 courses of treatment, CTA Pulm w/ left greater than right consolidation, images reviewed by me. Started Rocephin/Zithro IV, DuoNeb prn. 06/08 continue IV Rocephin and IV azithromycin. Sepsis criteria met on admission. Patient tachycardic and with leukocytosis. 06/09/17 Add IV Flagyl since WBC trending up. Monitor cbc. Check urinalysis. 06/10 Ua positive for UTI, growing group D enterococcus. Sepsis likely secondary to pneumonia and urinary tract infection. Continue IV Rocephin, Zithromax and IV Flagyl. 5. HTN: Uncontrolled secondary to non-compliance. BP 241/109, HR 120 on arrival, currently 179/90, HR 107. Start Nifedipine. Hold B-casie in light of widespread PE and SOB. 1/2 a pressure still elevated. With systolic blood pressure into the 150s. Increase dose of nifedipine from 30 mg by mouth daily to 60 mg by mouth daily. 6. SOB: Patient complained of shortness of breath and oxygen saturation dropping down to the high 80s on 06/08 \ Oxygen saturation much improved after IV lasix - Will repeat IV Lasix dose today. Continue supplemental o2 to keep o2 sat >92%. 06/10 Will check a home o2 walk test. 6. Tobacco Abuse: Heparin gtt for acute DVT/PE 7. Social work for d/c planning as needed. Discharge Planning Continue to monitor in the medical floor. Pending improvement of BP, walk test, urine sensitivities. Clinical improvement of sepsis and leukocytosis. Problem Qualifiers (1) DVT (deep venous thrombosis): Qualified Codes: I82.401 - Acute embolism and thrombosis of unspecified deep veins of right lower extremity (2) Anemia: Qualified Codes: D64.9 - Anemia, unspecified Austin Sellers MD Jun 10, 2017 14:23
[2017-06-11] VITALS (10 sets, daily range): BP systolic 149–171; BP diastolic 77–98; PULSE 85–111; RESP 16–20; TEMP 98.2–99.9; O2SAT 91–99
[2017-06-11] MEDS: AZITHROMYCIN INJ 500 MG in SODIUM CHLOR 0.9% 250 ML INJ 250 ML IV SCH (00:23)
[2017-06-11] MEDS: cefTRIAXone INJ 1,000 MG in SODIUM CHLORIDE 0.9% INJ 100 ML IV SCH (01:43)
[2017-06-11] MEDS: ACETAMINOPHEN/HYDROcodone 325 MG/5 MG TAB PO PRN ×4 (02:50→21:00)
[2017-06-11] MEDS: metroNIDAZOLE 500 MG INJ 100 ML IV SCH (06:45)
[2017-06-11 06:48] LABS: AUTOMATED NEUTROPHIL # 13.3 TH/MM3 (1.8-7.7); BASOPHIL # 0.1 TH/MM3 (0-0.2); BASOPHIL % 0.5 % (0.0-2.0); EOSINOPHIL # 0.1 TH/MM3 (0-0.4); EOSINOPHIL % 0.8 % (0.0-4.0); HEMATOCRIT 28.8 % (35.0-46.0); LYMPHOCYTE # 2.3 TH/MM3 (1.0-4.8); MEAN CELL VOLUME 70.1 FL (80.0-100.0); MEAN CORPUSCULAR HGB CONC 31.3 % (32.0-36.0); MEAN PLATELET VOLUME 8.1 FL (7.0-11.0); MONO % 9.4 % (0.0-8.0); MONOCYTE # 1.6 TH/MM3 (0-0.9); NEUT % 76.3 % (16.0-70.0); PLATELET COUNT 705 TH/MM3 (150-450); RED CELL DISTRIBUTION WIDTH 22.3 % (11.6-17.2); WHITE BLOOD COUNT 17.5 TH/MM3 (4.0-11.0)
[2017-06-11 07:07] LABS: BICARBONATE 27.5 MEQ/L (21.0-32.0); CREATININE 0.51 MG/DL (0.50-1.00)
[2017-06-11] MEDS: DOCUSATE SODIUM 50 MG/SENNA 8.6 MG TAB PO SCH ×2 (09:00→21:00)
[2017-06-11] MEDS ORDERED: VANCOMYCIN INJ 1,000 MG in SODIUM CHLOR 0.9% 250 ML INJ 250 ML IV SCH (09:30)
[2017-06-11] MEDS ORDERED: Vancomycin Consult Pharmacy 1 EA OTHER SCH (09:30)
[2017-06-11] MEDS: HEPARIN-D5W 25,000 U/250 ML 250 ML IV PRN (09:33)
[2017-06-11] MEDS: SODIUM CHLORIDE 0.9% FLUSH 10 ML FLUSH IV FLUSH SCH ×2 (09:36→21:00)
[2017-06-11] MEDS: NIFEdipine 60 MG SUSTAINED RELEASE TAB PO SCH (09:36)
[2017-06-11] MEDS ORDERED: PIPERACIL-TAZO 4.5 GM PREMIX 100 ML IV SCH (11:00)
[2017-06-11] MEDS ORDERED: VANCOMYCIN INJ 1,500 MG in SODIUM CHLORID 0.9% 500 ML INJ 500 ML IV SCH (12:00)
[2017-06-11] MEDS: AMPICILLIN INJ 2,000 MG in SODIUM CHLORIDE 0.9% INJ 100 ML IV SCH ×2 (15:44→21:01)
--- NOTE | 2017-06-11 16:49 | MB ---
cc: FIGUEROA SOLIS MD DATE OF CONSULTATION 06/11/[address] Escudero REASON FOR CONSULTATION Enterococcus UTI. Persistent leukocytosis. HISTORY OF PRESENT ILLNESS This is a 27-year-old black female who presents to the emergency department on 06/07 with swelling of her right lower extremity. The patient has been diagnosed with DVT and pulmonary embolism. She has had problems with dyspnea and presented to [facility] on 05/29 and was diagnosed with acute bronchitis and was given azithromycin. She returned on 06/05/2017 with respiratory symptoms and she was given a second round of Zithromax. She reportedly had productive cough. The chest x-ray on 06/05 revealed left base infiltrate and effusion. The patient is now being treated for DVT and PE. This consultation is requested because white blood cell count was increasing and urine culture was performed and it now has Enterococcus. White count went from 14.0 on 06/07 to 17.5 today. She is currently on IV piperacillin / tazobactam and vancomycin was also started today. Prior to that she was on azithromycin and ceftriaxone. The patient is currently laying in bed. She has somewhat of a flat affect. She does answer questions but does not even open her mouth to respond to me. She denies pain, chills, nausea, vomiting, shortness of breath, urinary discomfort or back pain. When I ask her if she is okay she shakes her head yes. PAST MEDICAL HISTORY 1. Hypertension. 2. . ALLERGIES NONSTEROIDAL ANTI-INFLAMMATORY PRODUCTS. MEDICATIONS 1. Vancomycin. 2. Piperacillin / tazobactam. 3. Procardia XL. 4. Coty-Colace. 5. Zithromax. SOCIAL HISTORY No tobacco, no alcohol. No illicit drugs. FAMILY HISTORY Noncontributory. REVIEW OF SYSTEMS Negative on 10-point review. PHYSICAL EXAMINATION GENERAL: This is a moderately obese female who is in no acute distress. VITAL SIGNS: Include a temperature 98.4, BP 171/98, respirations 20, heart rate 86. HEENT: Extraocular movements grossly intact, pupils reactive to light. No icterus. Oropharynx moist mucosa without lesions. NECK: Supple without adenopathy. LUNGS: Decreased breath sounds throughout. HEART: Regular S1-S2 without murmurs. ABDOMEN: Bowel sounds present, soft, nontender. RECTAL: Not performed. EXTREMITIES: No clubbing or cyanosis or edema. NEUROLOGIC: No gross focal findings. PSYCHIATRIC: The patient is calm. She has flat affect. LABORATORY DATA WBC 17.5, platelets 705, hemoglobin 9.0, 76% neutrophils. Creatinine 0.51, BUN 6. IMAGING Ultrasound of the pelvis shows no acute abnormality. IMPRESSION 1. Urinary tract infection due to Enterococcus. 2. Leukocytosis. 3. Pulmonary embolism. RECOMMENDATIONS 1. Discontinue vancomycin. 2. Discontinue piperacillin / tazobactam. 3. Give ampicillin intravenous 2 grams IV q.4h and monitor white blood cell count. If the white blood cell count shows signs of improving this could but then switched to p.o. ampicillin to treat the urinary tract infection. Thank you this consultation. I will monitor the patient's progress. Figueroa Solis MD FD/HOLLI /2:53 PM /4:11 PM
--- NOTE | 2017-06-11 16:50 | HHI.PR ---
Subjective Remarks WBC still persistently elevated denies cp/sob. BP still labile Objective Vitals Vital Signs Date Time Temp Pulse Resp B/P (MAP) Pulse Ox O2 Delivery O2 Flow Rate FiO2 06/11/17 15:14 Room Air 2.00 06/11/17 12:00 98.8 100 20 166/84 (111) 92 06/11/17 08:00 98.4 86 20 171/98 (122) 93 06/11/17 04:15 87 06/11/17 04:00 98.4 93 16 156/79 (104) 96 06/11/17 00:00 Room Air 06/11/17 00:00 98.2 96 16 149/77 (101) 94 06/11/17 00:00 85 06/10/17 20:08 Nasal Cannula 2.00 06/10/17 20:00 98.2 101 16 152/73 (99) 95 06/10/17 19:48 107 I/O 06/10/17 06/10/17 06/10/17 06/11/17 06/11/17 06/11/17 07:00 15:00 23:00 07:00 15:00 23:00 Intake Total 810 ml 850 ml 480 ml Output Total 600 ml Balance 810 ml -600 ml 850 ml 480 ml Intake Oral 360 ml 600 ml 480 ml IV Total 450 ml 250 ml Output Urine Total 600 ml # Voids 3 5 # Bowel Movements 0 0 Result Diagram: 06/11/17 0520 06/11/17 0520 Imaging Last Impressions Pelvis Ultrasound 06/08/17 0000 Signed Impressions: Service Date/Time: Thursday, June 08, 2017 22:38 - CONCLUSION: 1. Limited study due to lack of transvaginal imaging. 2. No acute abnormality observed. Fito Bernard Jr., MD CT Angiography 06/07/17 0284 Signed Impressions: Service Date/Time: Thursday, June 08, 2017 00:04 - CONCLUSION: 1. Widespread small bilateral pulmonary emboli. 2. Left greater than right pulmonary consolidation. Please see above. 3. Nonspecific mediastinal lymphadenopathy, mostly subcarinal. Chevy Brower MD Chest X-Ray 06/07/17 0032 Signed Impressions: Service Date/Time: Wednesday, June 07, 2017 22:20 - CONCLUSION: No change in slight cardiomegaly. Red Dowling MD Lower Extremity Ultrasound 06/07/17 0000 Signed Impressions: Service Date/Time: Wednesday, June 07, 2017 22:41 - CONCLUSION: Positive study for right lower extremity DVT involving the posterior tibial vein. Chevy Brower MD Objective Remarks GENERAL: Young black female in no acute distress. HEENT: PERRLA, EOMI. No scleral icterus or conjunctival pallor. No lid lag or facial droop. CARDIOVASCULAR: Regular rate and rhythm. No obvious murmurs to auscultation. No chest tenderness to palpation. RESPIRATORY: No obvious rhonchi or wheezing. Clear to auscultation. Breath sounds equal bilaterally. GASTROINTESTINAL: Abdomen soft, non-tender, nondistended. BS normal. MUSCULOSKELETAL: LLE without clubbing, cyanosis, or edema. No obvious deformities. RLE w/ +1 edema, tenderness to palpation over calf. NEUROLOGICAL: Awake, alert and oriented x4. No focal neurologic deficits. Moving both upper and lower extremities spontaneously. Medications and IVs Last Impressions Pelvis Ultrasound 06/08/17 0000 Signed Impressions: Service Date/Time: Thursday, June 08, 2017 22:38 - CONCLUSION: 1. Limited study due to lack of transvaginal imaging. 2. No acute abnormality observed. Fito Bernard Jr., MD CT Angiography 06/07/17 [id number] Signed Impressions: Service Date/Time: Thursday, June 08, 2017 00:04 - CONCLUSION: 1. Widespread small bilateral pulmonary emboli. 2. Left greater than right pulmonary consolidation. Please see above. 3. Nonspecific mediastinal lymphadenopathy, mostly subcarinal. Chevy Brower MD Chest X-Ray 06/07/172208 Signed Impressions: Service Date/Time: Wednesday, June 07, 2017 22:20 - CONCLUSION: No change in slight cardiomegaly. K. Stalin Dowling MD Lower Extremity Ultrasound 06/07/17 0000 Signed Impressions: Service Date/Time: Wednesday, June 07, 2017 22:41 - CONCLUSION: Positive study for right lower extremity DVT involving the posterior tibial vein. Chevy Brower MD A/P Problem List: (1) DVT (deep venous thrombosis) ICD Code: I82.409 - Acute embolism and thrombosis of unspecified deep veins of unspecified lower extremity Status: Acute (2) PE (pulmonary thromboembolism) ICD Code: I26.99 - Other pulmonary embolism without acute cor pulmonale (3) HTN (hypertension) ICD Code: I10 - Essential (primary) hypertension (4) Anemia ICD Code: D64.9 - Anemia, unspecified Status: Acute (5) Tobacco abuse ICD Code: Z72.0 - Tobacco use Assessment and Plan 1. DVT: acute onset of RLE pain/swelling, no trauma/injury. Doppler RLE + DVT. No previous h/o DVT, no recent travel/injury/surgery/immobility, no family h/o DVT. Analgesics/antiemetics as needed. 06/08 hematology consulted. Appreciate recommendations. The case was discussed with Dr. Min who recommends continuation of IV heparin and possibly switching to Eliquis for outpatient therapy.' 06/09/17 Continue IV heparin drip. Oral anticoagulation as per hematology. 06/10/17 As per hematology continue heparin gtt, will Dc on eliquis to home. 06/11/17 Will DC heparin gtt and start patient on Eliquis. 2. PE: CTA Pulm w/ widespread small bilateral PE, images reviewed by me, unclear etiology, no risk factors as above. Started on Heparin gtt, caution w/ anemia, however will proceed w/ anticoagulation as pt hemodynamically stable and high risk of further PE. Consult Hematology for recommendations regarding anticoagulation in light of profound anemia requiring transfusion. Check trop and Check Echo to eval for cardiac strain. DuoNeb/Symbicort prn for bronchospasm from widespread PE. 06/08 continue IV heparin drip as above. Continue supplemental oxygen to keep oxygen saturations more than 92%. Patient with oxygen saturation which could be secondary to fluid overload versus PE. 06/11/16 DC heparin drip, start Eliquis. 3. Anemia: Likely Iron Deficiency Anemia, reports chronic, heavy menstrual bleeding. Previous h/o Iron infusions in the past, however pt non-compliant w/ follow-up. Hgb 6.1, repeat confirmed at 5.8. Check Ferritin/Iron/TIBC. Transfuse 2u pRBC, repeat Hgb. Consult Hematology as above for further eval of anemia. 06/08 ELEVATOR DISPATCHER consulted. The patient is finishing the third unit of packed red blood cells. Follow-up iron studies 1/2 teslas post transfusion of 3 units of packed blood cells. Hemoglobin is relatively stable with a hemoglobin of 9.1. Iron studies consistent with iron deficiency anemia likely secondary to menorrhagia. ELEVATOR DISPATCHER consulted. Patient is not a candidate for hormonal therapy to treat menorrhagia. Recommended that level norgestrel 17 uterine system such as Mirena IUD could be used and will give secondary amenorrhea or hypomenorrhea as a side effect of the progestational agent, as per gynecology this agent is not absorbed systemically and only stays in the the uterus and can be used safely in patients with a history of thromboembolism. 4. Sepsis/PNA: w/ failed outpatient therapy. S/p Zithro 500mg po x2 courses of treatment, CTA Pulm w/ left greater than right consolidation, images reviewed by me. Started Rocephin/Zithro IV, DuoNeb prn. Sepsis criteria met on admission. Patient tachycardic and with leukocytosis. IV Flagyl was started since WBC trending up. 06/11 Consulted ID due to persistent leukocytosis. ID recommends ampicillin IV. PAtient started earlier on IV Vancomycin and IV Zosyn which were discontinued by ID when susceptibilities became available. 5. HTN: Uncontrolled secondary to non-compliance. BP 241/109, HR 120 on arrival, currently 179/90, HR 107. Start Nifedipine. Hold B-casie in light of widespread PE and SOB. 1/ a pressure still elevated. With systolic blood pressure into the 150s. Increase dose of nifedipine from 30 mg by mouth daily to 60 mg by mouth daily. 1/3 blood pressure still lot bile and hypertensive. Systolic blood pressure in the 160s. I will add Lisinopril 20 mg po daily, continue nifedipine 60 mg by mouth daily. 6. SOB: Patient complained of shortness of breath and oxygen saturation dropping down to the high 80s on 06/08 \ Oxygen saturation much improved after IV lasix - Will repeat IV Lasix dose today. Continue supplemental o2 to keep o2 sat >92%. 1/2 Will check a home o2 walk test. 1/3 patient will need home O2. 6. Tobacco Abuse: Heparin gtt for acute DVT/PE 7. Social work for d/c planning as needed. Discharge Planning Pending improvement of leukocytosis, ID clearance, needs home O2. Problem Qualifiers (1) DVT (deep venous thrombosis): Qualified Codes: I82.401 - Acute embolism and thrombosis of unspecified deep veins of right lower extremity (2) Anemia: Qualified Codes: D64.9 - Anemia, unspecified Austin Sellers MD Jun 11, 2017 16:50
[2017-06-11] MEDS: LISINOPRIL 20 MG TAB PO SCH (18:56)
[2017-06-11] MEDS: APIXABAN 5 MG TABLET PO SCH (20:59)
[2017-06-12] VITALS (9 sets, daily range): BP systolic 123–157; BP diastolic 69–89; PULSE 96–109; RESP 16–20; TEMP 98.3–99.3; O2SAT 87–99
[2017-06-12] MEDS: AZITHROMYCIN INJ 500 MG in SODIUM CHLOR 0.9% 250 ML INJ 250 ML IV SCH (00:17)
[2017-06-12] MEDS: ACETAMINOPHEN/HYDROcodone 325 MG/5 MG TAB PO PRN ×5 (01:28→21:01)
[2017-06-12] MEDS: AMPICILLIN INJ 2,000 MG in SODIUM CHLORIDE 0.9% INJ 100 ML IV SCH ×4 (03:10→21:01)
[2017-06-12] MEDS: SODIUM CHLORIDE 0.9% FLUSH 10 ML FLUSH IV FLUSH SCH ×2 (08:45→21:02)
[2017-06-12] MEDS: NIFEdipine 60 MG SUSTAINED RELEASE TAB PO SCH (08:45)
[2017-06-12] MEDS: LISINOPRIL 20 MG TAB PO SCH (08:46)
[2017-06-12] MEDS: APIXABAN 5 MG TABLET PO SCH ×2 (08:46→21:02)
[2017-06-12] MEDS: DOCUSATE SODIUM 50 MG/SENNA 8.6 MG TAB PO SCH ×2 (08:54→21:01)
[2017-06-12] MEDS ORDERED: PHARMACY ORDERED LAB ONE (11:45)
[2017-06-12] MEDS ORDERED: APIX5TAB PO (14:02)
[2017-06-12] MEDS ORDERED: OXYGENDME NAS.CANULA (14:04)
[2017-06-12] MEDS ORDERED: LISI-515 PO (14:07)
[2017-06-12] MEDS ORDERED: NIFE60TA8 PO (14:07)
--- NOTE | 2017-06-12 14:07 | HHI.DCPOC ---
Discharge Care Plan Diagnosis: (1) PE (pulmonary thromboembolism) (2) DVT (deep venous thrombosis) (3) Anemia (4) Hypoxemia (5) HTN (hypertension) Goals to Promote Your Health * To prevent worsening of your condition and complications * To maintain your health at the optimal level Directions to Meet Your Goals Take your medications as prescribed Follow your dietary instruction Follow activity as directed Keep your appointments as scheduled Take your immunizations and boosters as scheduled If your symptoms worsen call your PCP, if no PCP go to Urgent Care Center or Emergency Room Smoking is Dangerous to Your Health. Avoid second hand smoke Call the 24-hour hour crisis hotline for domestic abuse at Heena Yung MD Jun 12, 2017 14:07
[2017-06-12] MEDS ORDERED: AMPI500 PO (14:14)
--- NOTE | 2017-06-12 14:15 | HHI.DS ---
Discharge Summary Admission Date Jun 07, 2017 at 23:44 Discharge Date: Jun 12, 2017 Admitting Diagnosis DVT, Symptomatic anemia (1) DVT (deep venous thrombosis) ICD Code: I82.409 - Acute embolism and thrombosis of unspecified deep veins of unspecified lower extremity Status: Acute (2) PE (pulmonary thromboembolism) ICD Code: I26.99 - Other pulmonary embolism without acute cor pulmonale (3) HTN (hypertension) ICD Code: I10 - Essential (primary) hypertension (4) Anemia ICD Code: D64.9 - Anemia, unspecified Status: Acute (5) Tobacco abuse ICD Code: Z72.0 - Tobacco use Procedures None Brief History - From Admission This is a 27-year-old female w/ a PMH of HTN and Non-Compliance who presented to the ER with complaints of right leg pain and swelling starting this morning. States she thought she may have hit her leg on something at the house, but is unsure. No discrete trauma. Reports worsening swelling and pain throughout the day. Pain is constant, sharp, 8/10. Non-radiating. Worse w/ movement/ palpation. Also reports ongoing SOB. Previously seen in ER on 05/29/17 for c/ o cough/SOB, diagnosed w/ Bronchitis and d/c'd w/ Zithro 500mg PO. Returned to ER on 06/05/17 w/ ongoing complaints, reports compliance w/ antibiotics, d/c'd w / 2nd course of Zithro 500mg PO x5 days. Reports persistent cough w/ white/ yellow colored sputum and SOB, worse w/ exertion. Admits to Tobacco Abuse, however hasn't smoked in the past 2wks due to symptoms. On arrival, BP 241/109 , HR 120, O2 sat 97% on RA, Temp 99.1. O2 sat 88% with ambulation while in ER. WBC 14.4. Hemoglobin 6.1, repeat 5.8. Chemistry essentially unremarkable. INR 1.2. D-dimer elevated at 7. RLE Doppler positive for DVT. CXR w/ cardiomegaly. CTA Pulm w/ widespread small bilateral pulmonary emboli, left greater than right pulmonary consolidations. pRBC transfusion pending, started on Heparin gtt. Pt and Sister report no family h/o DVT/PE. Pt not on control-off "for years". No recent surgery, injury, immobility. CBC/BMP: 06/11/17 0520 06/11/17 0520 Significant Findings Laboratory Tests Test 06/09/17 16:45 06/10/17 06:20 06/11/17 05:20 06/12/17 06:42 Urine Color DARK-YELLOW (YELLW/STRAW) Urine Turbidity HAZY (CLEAR) Urine Protein 30 mg/dL (NEG-TRACE) Urine Occult Blood LARGE (NEG) Urine Leukocyte Esterase LARGE (NEG) Urine WBC 24 /hpf (0-5) Urine Bacteria OCC /hpf (NONE) Urine Mucus FEW /lpf (OCC) White Blood Count 17.1 TH/MM3 (4.0-11.0) 17.5 TH/MM3 (4.0-11.0) Hemoglobin 9.1 GM/DL (11.6-15.3) 9.0 GM/DL (11.6-15.3) Hematocrit 28.9 % (35.0-46.0) 28.8 % (35.0-46.0) Mean Corpuscular Volume 69.6 FL (80.0-100.0) 70.1 FL (80.0-100.0) Mean Corpuscular Hemoglobin 21.9 PG (27.0-34.0) 22.0 PG (27.0-34.0) Mean Corpuscular Hemoglobin Concent 31.5 % (32.0-36.0) 31.3 % (32.0-36.0) Red Cell Distribution Width 21.5 % (11.6-17.2) 22.3 % (11.6-17.2) Platelet Count 595 TH/MM3 (150-450) 705 TH/MM3 (150-450) Neutrophils (%) (Auto) 78.0 % (16.0-70.0) 76.3 % (16.0-70.0) Monocytes (%) (Auto) 9.2 % (0.0-8.0) 9.4 % (0.0-8.0) Neutrophils # (Auto) 13.3 TH/MM3 (1.8-7.7) 13.3 TH/MM3 (1.8-7.7) Monocytes # (Auto) 1.6 TH/MM3 (0-0.9) 1.6 TH/MM3 (0-0.9) Activated Partial Thromboplast Time 47.1 SEC (24.3-30.1) 42.4 SEC (24.3-30.1) 35.2 SEC (24.3-30.1) Albumin 2.3 GM/DL (3.4-5.0) Aspartate Amino Transf (AST/SGOT) 10 U/L (15-37) Blood Urea Nitrogen 6 MG/DL (7-18) Imaging Last Impressions Pelvis Ultrasound 06/08/17 0000 Signed Impressions: Service Date/Time: Thursday, June 08, 2017 22:38 - CONCLUSION: 1. Limited study due to lack of transvaginal imaging. 2. No acute abnormality observed. Fito Bernard Jr., MD CT Angiography 06/07/17 2324 Signed Impressions: Service Date/Time: Thursday, June 08, 2017 00:04 - CONCLUSION: 1. Widespread small bilateral pulmonary emboli. 2. Left greater than right pulmonary consolidation. Please see above. 3. Nonspecific mediastinal lymphadenopathy, mostly subcarinal. Chevy Brower MD Chest X-Ray 06/07/17 2209 Signed Impressions: Service Date/Time: Wednesday, June 07, 2017 22:20 - CONCLUSION: No change in slight cardiomegaly. Red Dowling MD Lower Extremity Ultrasound 06/07/17 0000 Signed Impressions: Service Date/Time: Wednesday, June 07, 2017 22:41 - CONCLUSION: Positive study for right lower extremity DVT involving the posterior tibial vein. Chevy Brower MD PE at Discharge GENERAL: Young black female in no acute distress. HEENT: PERRLA, EOMI. No scleral icterus or conjunctival pallor. No lid lag or facial droop. CARDIOVASCULAR: Regular rate and rhythm. No obvious murmurs to auscultation. No chest tenderness to palpation. RESPIRATORY: No obvious rhonchi or wheezing. Clear to auscultation. Breath sounds equal bilaterally. GASTROINTESTINAL: Abdomen soft, non-tender, nondistended. BS normal. MUSCULOSKELETAL: LLE without clubbing, cyanosis, or edema. No obvious deformities. RLE w/ +1 edema, tenderness to palpation over calf. NEUROLOGICAL: Awake, alert and oriented x4. No focal neurologic deficits. Moving both upper and lower extremities spontaneously. Pt update on day of discharge Patient reports she is feeling okay. Still requiring oxygen. Discussed discharge planning at length with the patient and her grandmother. She voiced understanding of the need to stay on anticoagulant and follow-up outpatient. Hospital Course 27-year-old female admitted with acute right lower extremity swelling. Patient was found to have unprovoked DVT and PE. She was treated with IV heparin. Hematology was consulted recommended transitioning to Eliquis on discharge. The patient is discharged on Eliquis to follow-up outpatient with hematology. She does require home oxygen for hypoxemia at this time. She will follow-up outpatient with PCP. The patient also presented with anemia. This is secondary to menorrhagia. She was evaluated by ELECTRICAL AND INSTRUMENT ENGINEER who advised IUD placement. Patient is advised to follow-up outpatient for IUD placement. She received 3 units of PRBC and H&H stabilized. Patient also met criteria for sepsis secondary to UTI. There were concern for pneumonia. Patient was evaluated by infectious disease and antibiotics were adjusted. Discussed with ID on the day of discharge. Patient is discharged on ampicillin for one more week. Other conditions treated include: HTN: Uncontrolled secondary to non-compliance. BP 241/109, HR 120 on arrival , currently 179/90, HR 107. Patient was started on nifedipine and lisinopril with improvement of her blood pressure. She was advised to follow-up outpatient with PCP. Tobacco abuse: The patient was counseled on tobacco cessation. I had an extensive discussion with the patient and her grandmother regarding the need to follow-up and comply with medical recommendations. They voice understanding. All of the questions were answered. Pt Condition on Discharge: Good Discharge Disposition: Discharge Home Discharge Time: > 30 minutes Discharge Instructions DIET: Follow Instructions for: Heart Healthy Diet Activities you can perform: Regular-No Restrictions Follow up Referrals: DIRECTOR OF CLAIMS - 2 Weeks Oncology/Hematology - 2 Weeks with Fara Min MD PCP Follow-up - 1 Week New Medications: Ampicillin (Ampicillin Trihydrate) 500 Mg Capsule 1 TAB PO Q6HR, #28 TAB Apixaban (Eliquis) 5 Mg Tab 5 MG PO BID for Blood Clot Prevention, #60 TAB 0 Refills Start this medication after you finish the 10 mg tablets. Apixaban (Eliquis) 5 Mg Tab 10 MG PO BID for Blood Clot Prevention, #14 TAB 0 Refills Oxygen (O2) (Oxygen (O2)) Device LITER LUDWIN.CANULA CONTINUOUS for Prevent Hypoxemia, #2 Oxygen Concentrator Portable Gaseous 2 L/min via Nasal Canula Continuous For 99 months Lisinopril (Lisinopril) 20 Mg Tab 20 MG PO DAILY, #30 TAB Nifedipine ER 24 HR (Nifedipine ER 24 HR) 60 Mg Tab 60 MG PO DAILY, #30 TAB Heena Yung MD Jun 12, 2017 14:15
[2017-06-13] VITALS (10 sets, daily range): BP systolic 132–153; BP diastolic 70–90; PULSE 91–105; RESP 17–20; TEMP 97.9–99.5; O2SAT 93–99
[2017-06-13] MEDS: ACETAMINOPHEN/HYDROcodone 325 MG/5 MG TAB PO PRN ×5 (01:14→21:29)
[2017-06-13] MEDS: AZITHROMYCIN INJ 500 MG in SODIUM CHLOR 0.9% 250 ML INJ 250 ML IV SCH (01:14)
[2017-06-13] MEDS: AMPICILLIN INJ 2,000 MG in SODIUM CHLORIDE 0.9% INJ 100 ML IV SCH ×4 (04:00→20:48)
[2017-06-13] MEDS: NIFEdipine 60 MG SUSTAINED RELEASE TAB PO SCH (08:47)
[2017-06-13] MEDS: SODIUM CHLORIDE 0.9% FLUSH 10 ML FLUSH IV FLUSH SCH ×2 (08:47→20:47)
[2017-06-13] MEDS: LISINOPRIL 20 MG TAB PO SCH (08:47)
[2017-06-13] MEDS: DOCUSATE SODIUM 50 MG/SENNA 8.6 MG TAB PO SCH ×2 (08:48→20:47)
[2017-06-13] MEDS: APIXABAN 5 MG TABLET PO SCH ×2 (08:48→20:47)
[2017-06-13 13:21] LABS: HEMATOCRIT 29.4 % (35.0-46.0); HEMOGLOBIN 9.2 GM/DL (11.6-15.3); MEAN CELL VOLUME 69.7 FL (80.0-100.0); MEAN CORPUSCULAR HEMOGLOBIN 21.7 PG (27.0-34.0); MEAN CORPUSCULAR HGB CONC 31.2 % (32.0-36.0); MEAN PLATELET VOLUME 7.1 FL (7.0-11.0); PLATELET COUNT 817 TH/MM3 (150-450); RED BLOOD COUNT 4.22 MIL/MM3 (4.00-5.30); WHITE BLOOD COUNT 16.4 TH/MM3 (4.0-11.0)
--- NOTE | 2017-06-13 14:10 | PD.ONC.PN ---
Subjective Subjective Remarks Afebrile overnight. Patient resting in room. Ready to go home. Denies pain. Objective Data Date Time Temp Pulse Resp B/P (MAP) Pulse Ox O2 Delivery O2 Flow Rate FiO2 06/13/17 12:00 Nasal Cannula 2.00 06/13/17 12:00 98.4 94 20 132/76 (94) 94 06/13/17 08:30 Nasal Cannula 2.00 06/13/17 08:00 91 06/13/17 08:00 98.2 99 20 142/70 (94) 98 06/13/17 04:14 98 06/13/17 04:00 99.5 101 18 153/90 (111) 99 06/13/17 04:00 Nasal Cannula 2.00 Humidified 06/13/17 00:11 103 06/13/17 00:00 98.6 105 18 151/75 (100) 93 06/13/17 00:00 Nasal Cannula 2.00 Humidified 06/12/17 21:23 108 06/12/17 20:00 Nasal Cannula 2.00 Humidified 06/12/17 20:00 98.6 109 18 147/69 (95) 93 06/12/17 16:00 99.0 101 20 123/73 (90) 94 06/13/17 06/13/17 06/13/17 07:00 15:00 23:00 Intake Total 1130 ml Output Total 300 ml Balance 830 ml Result Diagram: 06/13/17 1300 06/11/17 0520 Laboratory Results Laboratory Tests Test 06/13/17 04:58 06/13/17 13:00 Activated Partial Thromboplast Time 34.8 SEC White Blood Count 16.4 TH/MM3 Red Blood Count 4.22 MIL/MM3 Hemoglobin 9.2 GM/DL Hematocrit 29.4 % Mean Corpuscular Volume 69.7 FL Mean Corpuscular Hemoglobin 21.7 PG Mean Corpuscular Hemoglobin Concent 31.2 % Red Cell Distribution Width 23.0 % Platelet Count 817 TH/MM3 Mean Platelet Volume 7.1 FL Administered Medications Medications (Trade) Dose Ordered Sig/Brent Route PRN Reason Start Time Stop Time Status Last Admin Dose Admin Sodium Chloride (NS Flush) 2 ml BID IV FLUSH 06/08/17 09:00 06/13/17 08:47 Acetaminophen/ Hydrocodone Bitart ([place] 5-325 Mg) 1 tab Q4H PRN PO PAIN SCALE 3 TO 5 06/07/17 23:45 06/13/17 10:09 Senna/Docusate Sodium (Coty-Colace) 1 tab BID PO 06/08/17 09:00 06/12/17 21:01 Azithromycin 500 mg/Sodium Chloride 250 ml @ 250 mls/hr Q24H IV 06/08/17 01:00 06/13/17 01:14 Clonidine (Catapres) 0.1 mg Q6H PRN PO SYS BP GREATER THAN 160 MMHG 06/08/17 13:15 06/09/17 01:58 Nifedipine (Procardia Xl) 60 mg DAILY PO 06/11/17 09:00 06/13/17 08:47 Ampicillin Sodium 2000 mg/Sodium Chloride 100 ml @ 400 mls/hr Q6H IV 06/11/17 16:00 06/13/17 08:48 Lisinopril (Prinivil) 20 mg DAILY PO 06/11/17 17:45 06/13/17 08:47 Apixaban (Eliquis) 10 mg BID PO 06/11/17 21:00 06/13/17 08:48 Objective Remarks GENERAL: Obese female sitting up in bed in [facility]. SKIN: Warm and dry. HEAD: Normocephalic. EYES: No injection or drainage. NECK: Supple, trachea midline. CARDIOVASCULAR: Regular rate and rhythm RESPIRATORY: anterior silverman clear. on 2L O2 via NC GASTROINTESTINAL: Abdomen soft, non-tender, nondistended. EXTREMITIES: No cyanosis MUSCULOSKELETAL: Adequate muscle tone. NEUROLOGICAL: awake and alert. normal speech. moving extremities. no obvious focal deficit. Assessment/Plan Problem List: (1) PE (pulmonary thromboembolism) ICD Codes: I26.99 - Other pulmonary embolism without acute cor pulmonale Plan: --tolerating Eliquis. +sedentary lifestyle --no known family history --will need at minimum three months of anticoagulation. --fs faxed to new patient referrals for follow up in 2-3 weeks -- Will consider hypercoagulable workup in the outpatient setting. (2) DVT (deep venous thrombosis) ICD Codes: I82.409 - Acute embolism and thrombosis of unspecified deep veins of unspecified lower extremity Status: Acute (3) Microcytic anemia ICD Codes: D50.9 - Iron deficiency anemia, unspecified Plan: --s/p 3 units pRBC during this admission, may benefit from IV iron --TIBC WNL with total serum iron and %saturation low--consistent with iron deficiency anemia --B12 WNL ++Heavy menstrual blood loss. gynecology consulted Assessment 27-year-old admitted with RLE DVT and PE + Anemia. h/o hypertension Plan 1. ok to d/c 2. continue Eliquis 3. follow up with Dr. Min in 2-3 weeks. Attending Statement The exam, history, and the medical decision-making described in the above note were completed with the assistance of the mid-level provider. I reviewed and agree with the findings presented. I attest that I had a [id number] encounter with the patient on the same day, and personally performed and documented my assessment and findings in the medical record. 27 yoF admitted with DVT/PE, pneumonia, new oxygen requirement. Heparin converted to apixaban. Tolerating well. Will need minimum 3 months anticoagulation. Likely provoked due to non major transient risk factor recent illness, spending most of time laying down. Leukocytosis/thrombocytosis. Likely reactive continue to monitor. close follow up in clinic. Problem Qualifiers (1) DVT (deep venous thrombosis): Qualified Codes: I82.401 - Acute embolism and thrombosis of unspecified deep veins of right lower extremity Susie Neff Jun 13, 2017 14:10 Fara Min MD Jun 13, 2017 19:28
--- NOTE | 2017-06-13 16:43 | HHI.PR ---
Subjective Remarks Patient discharge held yesterday because she is waiting for oxygen to be delivered. No new complaints. Feels well. However still requiring oxygen. Objective Vitals Vital Signs Date Time Temp Pulse Resp B/P (MAP) Pulse Ox O2 Delivery O2 Flow Rate FiO2 06/13/17 16:10 3.00 06/13/17 12:00 Nasal Cannula 2.00 06/13/17 12:00 98.4 94 20 132/76 (94) 94 06/13/17 08:30 Nasal Cannula 2.00 06/13/17 08:00 91 06/13/17 08:00 98.2 99 20 142/70 (94) 98 06/13/17 04:14 98 06/13/17 04:00 99.5 101 18 153/90 (111) 99 06/13/17 04:00 Nasal Cannula 2.00 Humidified 06/13/17 00:11 103 06/13/17 00:00 98.6 105 18 151/75 (100) 93 06/13/17 00:00 Nasal Cannula 2.00 Humidified 06/12/17 21:23 108 06/12/17 20:00 Nasal Cannula 2.00 Humidified 06/12/17 20:00 98.6 109 18 147/69 (95) 93 I/O 06/12/17 06/12/17 06/12/17 06/13/17 06/13/17 06/13/17 07:00 15:00 23:00 07:00 15:00 23:00 Intake Total 830 ml 100 ml 1160 ml 1130 ml 100 ml Output Total 300 ml Balance 830 ml 100 ml 1160 ml 830 ml 100 ml Intake Oral 480 ml 960 ml 780 ml IV Total 350 ml 100 ml 200 ml 350 ml 100 ml Output Urine Total 300 ml # Voids 3 3 # Bowel Movements 0 0 Result Diagram: 06/13/17 1300 06/11/17 0520 Objective Remarks GENERAL: Obese female, in no apparent distress. CARDIOVASCULAR: Normal rate and regular rhythm without murmurs, gallops, or rubs. RESPIRATORY: Good respiratory efforts. Breath sounds equal and clear to auscultation bilaterally. GASTROINTESTINAL: Abdomen soft, non-tender, non-distended. Normal active bowel sounds MUSCULOSKELETAL: Extremities without cyanosis, or edema. NEURO: Alert & Oriented x4 to person, place, time, situation. Moves all ext x4 PSYCH: Appropriate mood and affect. Procedures None A/P Problem List: (1) DVT (deep venous thrombosis) ICD Code: I82.409 - Acute embolism and thrombosis of unspecified deep veins of unspecified lower extremity Status: Acute (2) PE (pulmonary thromboembolism) ICD Code: I26.99 - Other pulmonary embolism without acute cor pulmonale (3) HTN (hypertension) ICD Code: I10 - Essential (primary) hypertension (4) Anemia ICD Code: D64.9 - Anemia, unspecified Status: Acute (5) Tobacco abuse ICD Code: Z72.0 - Tobacco use Assessment and Plan 27-year-old female admitted with acute right lower extremity swelling. Patient was found to have unprovoked DVT and PE. She was treated with IV heparin. Hematology was consulted recommended transitioning to Eliquis on discharge. The patient is discharged on Eliquis to follow-up outpatient with hematology. She does require home oxygen for hypoxemia at this time. She will follow-up outpatient with PCP. The patient also presented with anemia. This is secondary to menorrhagia. She was evaluated by ABATTOIR SUPERVISOR who advised IUD placement. Patient is advised to follow-up outpatient for IUD placement. She received 3 units of PRBC and H&H stabilized. Patient also met criteria for sepsis secondary to UTI. There were concern for pneumonia. Patient was evaluated by infectious disease and antibiotics were adjusted. Patient is discharged on ampicillin for one more week per infectious disease recommendations. Other conditions treated include: HTN: Uncontrolled secondary to non-compliance. BP 241/109, HR 120 on arrival , currently 179/90, HR 107. Patient was started on nifedipine and lisinopril with improvement of her blood pressure. She was advised to follow-up outpatient with PCP. Tobacco abuse: The patient was counseled on tobacco cessation. I had an extensive discussion with the patient and her grandmother regarding the need to follow-up and comply with medical recommendations. They voice understanding. All of the questions were answered. Patient can be discharged home today once oxygen is delivered. Problem Qualifiers (1) DVT (deep venous thrombosis): Qualified Codes: I82.401 - Acute embolism and thrombosis of unspecified deep veins of right lower extremity (2) Anemia: Qualified Codes: D64.9 - Anemia, unspecified Heena Yung MD Jun 13, 2017 16:42
[2017-06-14] VITALS (10 sets, daily range): BP systolic 132–155; BP diastolic 70–90; PULSE 87–118; RESP 17–18; TEMP 97.8–99.2; O2SAT 94–97
[2017-06-14] MEDS: ACETAMINOPHEN/HYDROcodone 325 MG/5 MG TAB PO PRN ×3 (01:16→14:49)
[2017-06-14] MEDS: AZITHROMYCIN INJ 500 MG in SODIUM CHLOR 0.9% 250 ML INJ 250 ML IV SCH (01:16)
[2017-06-14] MEDS: AMPICILLIN INJ 2,000 MG in SODIUM CHLORIDE 0.9% INJ 100 ML IV SCH ×4 (03:38→21:34)
[2017-06-14] MEDS: APIXABAN 5 MG TABLET PO SCH ×2 (09:07→21:35)
[2017-06-14] MEDS: SODIUM CHLORIDE 0.9% FLUSH 10 ML FLUSH IV FLUSH SCH ×2 (09:07→21:35)
[2017-06-14] MEDS: NIFEdipine 60 MG SUSTAINED RELEASE TAB PO SCH (09:08)
[2017-06-14] MEDS: LISINOPRIL 20 MG TAB PO SCH (09:08)
[2017-06-14] MEDS: DOCUSATE SODIUM 50 MG/SENNA 8.6 MG TAB PO SCH ×2 (09:08→21:35)
--- NOTE | 2017-06-14 12:45 | HHI.PR ---
Subjective Remarks Patient discharged on 06/12/17. She is still waiting for oxygen to be delivered. States she is feeling better but still requiring oxygen. Objective Vitals Vital Signs Date Time Temp Pulse Resp B/P (MAP) Pulse Ox O2 Delivery O2 Flow Rate FiO2 06/14/17 12:29 98.5 97 18 139/82 (101) 96 06/14/17 10:54 87 06/14/17 08:03 97.8 92 18 147/90 (109) 97 06/14/17 07:15 97 Nasal Cannula 3.00 Humidified 06/14/17 06:05 90 06/14/17 04:00 Nasal Cannula 3.00 Humidified 06/14/17 04:00 98.1 95 18 155/78 (103) 94 06/14/17 00:00 Nasal Cannula 3.00 06/14/17 00:00 98.4 98 18 149/88 (108) 95 06/13/17 23:47 97 06/13/17 20:00 3.00 06/13/17 20:00 99.4 102 17 133/79 (97) 96 06/13/17 19:46 101 06/13/17 16:10 3.00 06/13/17 16:00 103 06/13/17 16:00 97.9 104 20 139/72 (94) 95 I/O 06/13/17 06/13/17 06/13/17 06/14/17 06/14/17 06/14/17 07:00 15:00 23:00 07:00 15:00 23:00 Intake Total 1130 ml 100 ml 920 ml 1310 ml Output Total 300 ml Balance 830 ml 100 ml 920 ml 1310 ml Intake Oral 780 ml 720 ml 960 ml IV Total 350 ml 100 ml 200 ml 350 ml Output Urine Total 300 ml # Voids 3 4 2 # Bowel Movements 0 1 1 Result Diagram: 06/13/17 1300 06/11/17 0520 Objective Remarks GENERAL: Obese female, in no apparent distress. CARDIOVASCULAR: Normal rate and regular rhythm without murmurs, gallops, or rubs. RESPIRATORY: Good respiratory efforts. Breath sounds equal and clear to auscultation bilaterally. GASTROINTESTINAL: Abdomen soft, non-tender, non-distended. Normal active bowel sounds MUSCULOSKELETAL: Extremities without cyanosis, or edema. NEURO: Alert & Oriented x4 to person, place, time, situation. Moves all ext x4 PSYCH: Appropriate mood and affect. Procedures None A/P Problem List: (1) DVT (deep venous thrombosis) ICD Code: I82.409 - Acute embolism and thrombosis of unspecified deep veins of unspecified lower extremity Status: Acute (2) PE (pulmonary thromboembolism) ICD Code: I26.99 - Other pulmonary embolism without acute cor pulmonale (3) HTN (hypertension) ICD Code: I10 - Essential (primary) hypertension (4) Anemia ICD Code: D64.9 - Anemia, unspecified Status: Acute (5) Tobacco abuse ICD Code: Z72.0 - Tobacco use Assessment and Plan 27-year-old female admitted with acute right lower extremity swelling. Patient was found to have unprovoked DVT and PE. She was treated with IV heparin. Hematology was consulted recommended transitioning to Eliquis on discharge. The patient is discharged on Eliquis to follow-up outpatient with hematology. She does require home oxygen for hypoxemia at this time. She will follow-up outpatient with PCP. The patient also presented with anemia. This is secondary to menorrhagia. She was evaluated by MACHINE RUG CLEANER who advised IUD placement. Patient is advised to follow-up outpatient for IUD placement. She received 3 units of PRBC and H&H stabilized. Patient also met criteria for sepsis secondary to UTI. There were concern for pneumonia. Patient was evaluated by infectious disease and antibiotics were adjusted. Patient is discharged on ampicillin for one more week per infectious disease recommendations. Other conditions treated include: HTN: Uncontrolled secondary to non-compliance. BP 241/109, HR 120 on arrival , currently 179/90, HR 107. Patient was started on nifedipine and lisinopril with improvement of her blood pressure. She was advised to follow-up outpatient with PCP. Tobacco abuse: The patient was counseled on tobacco cessation. I had an extensive discussion with the patient and her grandmother regarding the need to follow-up and comply with medical recommendations. They voice understanding. All of the questions were answered. Patient can be discharged home today once oxygen is delivered. I filled out more paperwork as requested by case management. Problem Qualifiers (1) DVT (deep venous thrombosis): Qualified Codes: I82.401 - Acute embolism and thrombosis of unspecified deep veins of right lower extremity (2) Anemia: Qualified Codes: D64.9 - Anemia, unspecified Rimpel,Ricardy MD Jun 14, 2017 12:45
[2017-06-15] VITALS (7 sets, daily range): BP systolic 135–157; BP diastolic 66–87; PULSE 92–107; RESP 17–18; TEMP 98.4–98.9; O2SAT 96–98
[2017-06-15] MEDS: AZITHROMYCIN INJ 500 MG in SODIUM CHLOR 0.9% 250 ML INJ 250 ML IV SCH (01:22)
[2017-06-15] MEDS: AMPICILLIN INJ 2,000 MG in SODIUM CHLORIDE 0.9% INJ 100 ML IV SCH ×2 (03:31→09:21)
[2017-06-15] MEDS: ACETAMINOPHEN/HYDROcodone 325 MG/5 MG TAB PO PRN (06:02)
[2017-06-15] MEDS: SODIUM CHLORIDE 0.9% FLUSH 10 ML FLUSH IV FLUSH SCH (09:19)
[2017-06-15] MEDS: APIXABAN 5 MG TABLET PO SCH (09:20)
[2017-06-15] MEDS: LISINOPRIL 20 MG TAB PO SCH (09:20)
[2017-06-15] MEDS: DOCUSATE SODIUM 50 MG/SENNA 8.6 MG TAB PO SCH (09:20)
[2017-06-15] MEDS: NIFEdipine 60 MG SUSTAINED RELEASE TAB PO SCH (09:20)
--- NOTE | 2017-06-15 16:20 | HHI.PR ---
Subjective Remarks Late entry, patient seen around 2 PM. Still waiting for oxygen to be delivered. She reports she is feeling okay but still requiring oxygen. Objective Vitals Vital Signs Date Time Temp Pulse Resp B/P (MAP) Pulse Ox O2 Delivery O2 Flow Rate FiO2 06/15/17 13:13 Nasal Cannula 3.00 Humidified 06/15/17 12:03 98.5 100 18 143/80 (101) 98 06/15/17 09:30 Nasal Cannula 3.00 Humidified 06/15/17 08:03 98.4 92 18 144/78 (100) 98 06/15/17 08:00 98 06/15/17 04:02 94 06/15/17 04:00 98.7 97 17 157/87 (110) 96 06/15/17 04:00 Nasal Cannula 3.00 Humidified 06/15/17 00:01 107 06/15/17 00:00 Nasal Cannula 3.00 Humidified 06/15/17 00:00 98.9 96 18 135/66 (89) 96 06/14/17 20:00 98.6 107 18 132/70 (90) 97 06/14/17 20:00 Nasal Cannula 3.00 Humidified 06/14/17 19:55 112 06/14/17 18:30 118 I/O 06/14/17 06/14/17 06/14/17 06/15/17 06/15/17 06/15/17 07:00 15:00 23:00 07:00 15:00 23:00 Intake Total 1310 ml 820 ml 1200 ml Output Total 800 ml Balance 1310 ml 820 ml 400 ml Intake Oral 960 ml 720 ml 950 ml IV Total 350 ml 100 ml 250 ml Output Urine Total 800 ml # Voids 2 4 # Bowel Movements 1 1 0 Result Diagram: 06/13/17 1300 06/11/17 0520 Objective Remarks GENERAL: Obese female, in no apparent distress. CARDIOVASCULAR: Normal rate and regular rhythm without murmurs, gallops, or rubs. RESPIRATORY: Good respiratory efforts. Breath sounds equal and clear to auscultation bilaterally. GASTROINTESTINAL: Abdomen soft, non-tender, non-distended. Normal active bowel sounds MUSCULOSKELETAL: Extremities without cyanosis, or edema. NEURO: Alert & Oriented x4 to person, place, time, situation. Moves all ext x4 PSYCH: Appropriate mood and affect. Procedures None A/P Problem List: (1) DVT (deep venous thrombosis) ICD Code: I82.409 - Acute embolism and thrombosis of unspecified deep veins of unspecified lower extremity Status: Acute (2) PE (pulmonary thromboembolism) ICD Code: I26.99 - Other pulmonary embolism without acute cor pulmonale (3) HTN (hypertension) ICD Code: I10 - Essential (primary) hypertension (4) Anemia ICD Code: D64.9 - Anemia, unspecified Status: Acute (5) Tobacco abuse ICD Code: Z72.0 - Tobacco use Assessment and Plan 27-year-old female admitted with acute right lower extremity swelling. Patient was found to have unprovoked DVT and PE. She was treated with IV heparin. Hematology was consulted recommended transitioning to Eliquis on discharge. The patient is discharged on Eliquis to follow-up outpatient with hematology. She does require home oxygen for hypoxemia at this time. She will follow-up outpatient with PCP. The patient also presented with anemia. This is secondary to menorrhagia. She was evaluated by [employer] who advised IUD placement. Patient is advised to follow-up outpatient for IUD placement. She received 3 units of PRBC and H&H stabilized. Patient also met criteria for sepsis secondary to UTI. There were concern for pneumonia. Patient was evaluated by infectious disease and antibiotics were adjusted. Patient is discharged on ampicillin for one more week per infectious disease recommendations. Other conditions treated include: HTN: Uncontrolled secondary to non-compliance. BP 241/109, HR 120 on arrival , currently 179/90, HR 107. Patient was started on nifedipine and lisinopril with improvement of her blood pressure. She was advised to follow-up outpatient with PCP. Tobacco abuse: The patient was counseled on tobacco cessation. I had an extensive discussion with the patient and her grandmother regarding the need to follow-up and comply with medical recommendations. They voice understanding. All of the questions were answered. Oxygen is delivered today. Patient can be discharged home. Problem Qualifiers (1) DVT (deep venous thrombosis): Qualified Codes: I82.401 - Acute embolism and thrombosis of unspecified deep veins of right lower extremity (2) Anemia: Qualified Codes: D64.9 - Anemia, unspecified Heena Yung MD Jun 15, 2017 16:20
== END 2017-06-15 14:30 | disposition home or self-care (01) | DRG 871 ==
LOC: NEPD 21:19 → NEDA 23:44 → N04B 06-08 01:05
PROVIDERS: ADMIT Family Medicine; ATTEND Family Medicine
PROC: 30233N1 Transfusion of Nonautologous Red Blood Cells into Peripheral Vein, Percutaneous Approach (ICD-10-PCS; principal; 2017-06-07)
DX: A41.9 Sepsis, unspecified organism (principal); I26.99 Other pulmonary embolism without acute cor pulmonale; J18.9 Pneumonia, unspecified organism; I82.441 Acute embolism and thrombosis of right tibial vein; N39.0 Urinary tract infection, site not specified; I10 Essential (primary) hypertension; R00.0 Tachycardia, unspecified; R09.02 Hypoxemia; Z91.19 Patient's noncompliance with other medical treatment and regimen; Z72.0 Tobacco use; D50.9 Iron deficiency anemia, unspecified; N92.0 Excessive and frequent menstruation with regular cycle; B95.2 Enterococcus as the cause of diseases classified elsewhere
CPT/HCPCS: 36430; 71010; 71275; 76856; 80048; 80053; 81001; 82607; 82728; 82746; 82747; 83540; 83550; 83605; 83735; 84100; 84484; 84703; 85025; 85027; 85044; 85379; 85610; 85730; 86850; 86900; 86901; 86920; 87040; 87077; 87086; 87186; 93005; 93306; 93971; 93975; 94618; 96360; 96372; J0290; J0456; J0696; J1644; J1940; J2543; J3370; J7030; J7040; J7050; P9016; Q9967